=== PATIENT | female | born 1950 | race American Indian/Alaskan Native ===

== ENCOUNTER 2018-06-21 18:57 | Emergency (ER) | payer MEDICARE ==
--- NOTE | 2018-06-21 20:27 | Emergency Department Report ---
ED Psych HPI - General Chief Complaint: High BP Stated Complaint: EVALUATION Time Seen by Provider: 06/21/18 19:46 Source: patient, EMS Mode of arrival: Stretcher - History of Present Illness Initial Comments: Mrs. Pritchard is a very pleasant female with history of schizophrenia, CVA, hypertension, diabetes presents with "bizarre behavior". She was brought in by EMS. She has been out of her psychiatric medications including BuSpar olanzapine for the past 3 days. Her PCP is Dr. Pati Vargas. She is followed by psychiatrist at [facility]. She currently lives with her daughter. She denies any suicidal or homicidal ideation. She denies hallucinations. She states that she's had a contentious interactions with her sister and daughter. She lives with her daughter. The arguments involve money. [facility] She is relatively insightful. She is concerned that she's been without warfarin. Due to her CVA diagnosed March 2016, previous physician had recommended warfarin therapy. She recently moved from [facility] , May 2016 to be with her daughter as ordered by the court according to her history. 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 She receives monthly Social Security benefits of $ 736. She pays her daugther $400 in rent. No physical complaints except for poor appetite. She is currently hungry. [facility] Psychiatrist Dr. Brian Rocha In September 2016, medications listed Buspar 100 mg 1 tab each morning Ambien 10 mg QHS Fluphenazine 10 mg BID Complaint: altered mental status ("bizarre behavior") -: unknown Associated Psychiatric Symptoms: none Context: not taking psychiatric (ran out of medications 3 days ago) Associated Symptoms: denies other symptoms - Related Data Home Medications Medication Instructions Recorded Confirmed Last Taken Atenolol [Tenormin] 25 mg PO DAILY 06/21/18 06/21/18 Unknown Nitroglycerin [Nitrostat] 0.4 mg SL Q5M 06/21/18 06/21/18 Unknown Allergies Allergy/AdvReac Type Severity Reaction Status Date / Time No Known Allergies Allergy Verified 06/21/18 19:40 ED Review of Systems ROS: Stated complaint: EVALUATION Other details as noted in HPI Comment: All other systems reviewed and negative Constitutional: denies: fever, malaise Respiratory: denies: cough Cardiovascular: denies: chest pain ED Past Medical Hx - Past Medical History Previous Medical History?: Yes Hx Hypertension: Yes Hx Psychiatric Treatment: Yes (Depression, Schizophrenia, PTSD) - Surgical History Past Surgical History?: Yes Additional Surgical History: Partial hysterectomy. bladder sling - Social History Smoking Status: Never Smoker Substance Use Type: None - Medications Home Medications: Home Medications Medication Instructions Recorded Confirmed Last Taken Type Atenolol [Tenormin] 25 mg PO DAILY 06/21/18 06/21/18 Unknown History Nitroglycerin [Nitrostat] 0.4 mg SL Q5M 06/21/18 06/21/18 Unknown History ED Physical Exam - General Limitations: No Limitations General appearance: alert, in no apparent distress - Head Head exam: Present: atraumatic, normocephalic - Eye Eye exam: Present: normal appearance - ENT ENT exam: Present: mucous membranes moist - Neck Neck exam: Present: normal inspection - Respiratory Respiratory exam: Present: normal lung sounds bilaterally. Absent: respiratory distress, wheezes, rales, rhonchi - Cardiovascular Cardiovascular Exam: Present: regular rate, normal rhythm, tachycardia, normal heart sounds. Absent: bradycardia, systolic murmur, diastolic murmur, rubs, gallop - GI/Abdominal GI/Abdominal exam: Present: soft, normal bowel sounds. Absent: distended, tenderness, guarding, rebound - Extremities Exam Extremities exam: Present: normal inspection - Back Exam Back exam: Present: normal inspection - Neurological Exam Neurological exam: Present: alert, oriented X3 - Psychiatric Psychiatric exam: Present: normal affect, normal mood, other (pressured circular speech) - Skin Skin exam: Present: warm, dry, intact, normal color. Absent: rash ED Course Vital Signs 06/21/18 06/21/18 06/21/18 19:32 19:40 19:54 Temperature 99.1 F Pulse Rate 119 H 121 H Respiratory 12 14 14 Rate Blood Pressure 179/98 O2 Sat by Pulse 98 98 98 Oximetry 06/21/18 06/21/18 06/21/18 20:00 21:01 22:10 Temperature Pulse Rate 118 H 121 H 104 H Respiratory 12 10 L Rate Blood Pressure 204/125 204/125 157/100 O2 Sat by Pulse 96 98 Oximetry 06/21/18 06/21/1806/21/18 22:30 22:45 23:01 Temperature Pulse Rate 108 H 107 H 116 H Respiratory 11 L 13 22 Rate Blood Pressure 181/109 181/109 181/109 O2 Sat by Pulse 99 99 99 Oximetry 06/21/18 06/21/18 06/22/18 23:15 23:55 00:00 Temperature Pulse Rate 106 H 106 H 102 H Respiratory 12 21 11 L Rate Blood Pressure 181/109 164/97 139/88 O2 Sat by Pulse 99 98 93 Oximetry ED Medical Decision Making - Lab Data Result diagrams: 06/21/18 21:12 06/21/18 21:12 Laboratory Results - last 24 hr 06/21/18 06/21/18 06/21/18 21:12 21:12 21:12 WBC 8.5 RBC 4.54 Hgb 14.8 H Hct 43.0 H MCV 95 MCH 33 H MCHC 35 H RDW 14.6 Plt Count 169 Lymph % (Auto) 17.9 Butler % (Auto) 6.6 Eos % (Auto) 0.4 Baso % (Auto) 0.8 Lymph # 1.5 Butler # 0.6 Eos # 0.0 Baso # 0.1 Seg Neutrophils % 74.3 H Seg Neutrophils # 6.3 Sodium 145 Potassium 3.9 Chloride 106.4 Carbon Dioxide 25 Anion Gap 18 BUN 21 H Creatinine 1.7 H Estimated GFR 36 BUN/Creatinine Ratio 12 Glucose 104 H Calcium 10.0 Total Bilirubin 0.40 AST 20 ALT 6 L Alkaline Phosphatase 123 Total Protein 7.4 Albumin 4.0 Albumin/Globulin Ratio 1.2 TSH 1.750 Urine Color Urine Turbidity Urine pH Ur Specific [place] Urine Protein Urine Glucose (UA) Urine Ketones Urine Blood Urine Nitrite Urine Bilirubin Urine Urobilinogen Ur Leukocyte Esterase Urine WBC (Auto) Urine RBC (Auto) U Epithel Cells (Auto) Urine Bacteria (Auto) Hyaline Casts Urine Mucus Salicylates Urine Opiates Screen Urine Methadone Screen Acetaminophen Ur Barbiturates Screen Ur Phencyclidine Scrn Ur Amphetamines Screen U Benzodiazepines Scrn Urine Cocaine Screen U Marijuana (THC) Screen Drugs of Abuse Note Plasma/Serum Alcohol 06/21/18 06/21/18 06/21/18 21:12 21:12 21:12 WBC RBC Hgb Hct MCV MCH MCHC RDW Plt Count Lymph % (Auto) Butler % (Auto) Eos % (Auto) Baso % (Auto) Lymph # Butler # Eos # Baso # Seg Neutrophils % Seg Neutrophils # Sodium Potassium Chloride Carbon Dioxide Anion Gap BUN Creatinine Estimated GFR BUN/Creatinine Ratio Glucose Calcium Total Bilirubin AST ALT Alkaline Phosphatase Total Protein Albumin Albumin/Globulin Ratio TSH Urine Color Urine Turbidity Urine pH Ur Specific [place] Urine Protein Urine Glucose (UA) Urine Ketones Urine Blood Urine Nitrite Urine Bilirubin Urine Urobilinogen Ur Leukocyte Esterase Urine WBC (Auto) Urine RBC (Auto) U Epithel Cells (Auto) Urine Bacteria (Auto) Hyaline Casts Urine Mucus Salicylates < 0.3 L Urine Opiates Screen Urine Methadone Screen Acetaminophen < 5.0 L Ur Barbiturates Screen Ur Phencyclidine Scrn Ur Amphetamines Screen U Benzodiazepines Scrn Urine Cocaine Screen U Marijuana (THC) Screen Drugs of Abuse Note Plasma/Serum Alcohol < 0.01 06/22/18 06/22/18 00:00 00:00 WBC RBC Hgb Hct MCV MCH MCHC RDW Plt Count Lymph % (Auto) Butler % (Auto) Eos % (Auto) Baso % (Auto) Lymph # Butler # Eos # Baso # Seg Neutrophils % Seg Neutrophils # Sodium Potassium Chloride Carbon Dioxide Anion Gap BUN Creatinine Estimated GFR BUN/Creatinine Ratio Glucose Calcium Total Bilirubin AST ALT Alkaline Phosphatase Total Protein Albumin Albumin/Globulin Ratio TSH Urine Color Yellow Urine Turbidity Cloudy Urine pH 5.0 Ur Specific [place] 1.021 Urine Protein 100 mg/dl Urine Glucose (UA) Neg Urine Ketones Neg Urine Blood Neg Urine Nitrite Neg Urine Bilirubin Neg Urine Urobilinogen 2.0 Ur Leukocyte Esterase Neg Urine WBC (Auto) 5.0 Urine RBC (Auto) 2.0 U Epithel Cells (Auto) 16.0 H Urine Bacteria (Auto) 3+ Hyaline Casts 2 Urine Mucus 3+ Salicylates Urine Opiates Screen Presumptive negative Urine Methadone Screen Presumptive negative Acetaminophen Ur Barbiturates Screen Presumptive negative Ur Phencyclidine Scrn Presumptive negative Ur Amphetamines Screen Presumptive negative U Benzodiazepines Scrn Presumptive negative Urine Cocaine Screen Presumptive negative U Marijuana (THC) Screen Presumptive negative Drugs of Abuse Note Disclamer Plasma/Serum Alcohol - Radiology Data CT head, portable chest x-ray no acute process. - Medical Decision Making Mrs. Pritchard has hx of CVA, HTN, DM and schizophrenia. Due to pressured circular speech is is apparent that patient has mental illness. However she does not appear to be a harm to herself or others. Due to contentious relationship with daughter, I can understand that her home environment is not ideal. However appears that the daughter is taking care of her. I do not have a number to call to daughter. I will await recommendation from mental health and social work consultations. I anticipate the patient will be in the ER overnight as she awaits appropriate placement return to home or to a usp facility. Patient does not have signs of infection or CVA. No acute medical process which needs further treatment or evaluation. Patient is medically clear for psychiatric care. Awaiting mental health consultation as well as case management. Patient will need social worker aide as well as medications for her mental health needs. Critical care attestation.: If time is entered above; I have spent that time in minutes in the direct care of this critically ill patient, excluding procedure time. ED Disposition Clinical Impression: Problem situation relating to social and personal history, Schizophrenia, Noncompliance with medication regimen Disposition: [id number]/TX-70 ANOTHER TYPE HLTHCARE Is pt being admited?: No Does the pt Need Aspirin: No Condition: Stable
[2018-06-21] MEDS ORDERED: NACL 0.9% 1000 ML 1,000 ML IV ONE (20:30)
[2018-06-21] MEDS ORDERED: NORMODYNE PO ONE (21:02)
[2018-06-21 21:24] LABS: Basophils # (Auto) 0.1 K/mm3 (0.0-0.1); Basophils % (Auto) 0.8 % (0.0-1.8); Eosinophils % (Auto) 0.4 % (0.0-4.3); Hemoglobin 14.8 gm/dl (10.1-14.3); Lymphocytes # (Auto) 1.5 K/mm3 (1.2-5.4); Lymphocytes % (Auto) 17.9 % (13.4-35.0); Mean Corpuscular HGB Conc 35 % (30-34); Mean Corpuscular Hemoglobin 33 pg (28-32); Mean Corpuscular Volume 95 fl (79-97); Monocytes # (Auto) 0.6 K/mm3 (0.0-0.8); Monocytes % (Auto) 6.6 % (0.0-7.3); Platelet Count 169 K/mm3 (140-440); Red Blood Count 4.54 M/mm3 (3.65-5.03); Red Cell Distribution Width 14.6 % (13.2-15.2)
--- NOTE | 2018-06-21 21:46 | XRay Report ---
FINAL REPORT EXAM: XR CHEST 1V AP HISTORY: Medical Clearance Psych TECHNIQUE: AP portable view of the chest. PRIORS: None. FINDINGS: There is atherosclerotic calcification in the thoracic aorta. Otherwise the cardiomediastinal silhouette appears normal. The lungs are clear. The bones and soft tissues are unremarkable. IMPRESSION: No evidence of acute cardiopulmonary disease.
--- NOTE | 2018-06-21 22:16 | Cat Scan Report ---
FINAL REPORT EXAM: CT HEAD/BRAIN WO CON HISTORY: Medical Clearance Psych TECHNIQUE: CT was performed from the foramen magnum through the vertex in the axial plane without the use of intravenous contrast. PRIORS: None. FINDINGS: The medley/white matter attenuation pattern is normal. There is no mass lesion or mass effect. There are no abnormal extra-axial fluid collections. There is no evidence of acute intracranial hemorrhage or infarct. The ventricles are of normal size and configuration. The skull and orbits are unremarkable. The visualized paranasal sinuses are clear. IMPRESSION: Normal CT of the head.
[2018-06-22 00:43] LABS: Bacteria,Urine 3+ /HPF (Negative); Bilirubin,Urine NEG (Negative); Blood,Urine NEG (Negative); Color,Urine Yellow (Yellow); Hyaline Casts,Urine 2 /LPF; Mucus,Urine 3+ /HPF
[2018-06-22 00:46] LABS: Amphetamine Screen,Urine PRESUMPTIVE NEGATIVE; Benzodiazepines Screen,Urine PRESUMPTIVE NEGATIVE; Cannabinoid Screen,Urine PRESUMPTIVE NEGATIVE; Cocaine Screen,Urine PRESUMPTIVE NEGATIVE; Methadone Screen,Urine PRESUMPTIVE NEGATIVE; Opiate Screen,Urine PRESUMPTIVE NEGATIVE
[2018-06-22] MEDS: NORVASC PO SCH (10:07)
[2018-06-22] MEDS: ZESTRIL PO SCH (10:54)
[2018-06-23] MEDS ORDERED: ATIVAN ONE (11:05)
[2018-06-23] MEDS ORDERED: ZESTRIL ONE (11:42)
[2018-06-23] MEDS: ZESTRIL PO SCH (11:46)
[2018-06-23] MEDS: NORVASC PO SCH (11:47)
[2018-06-24] MEDS: NORVASC PO SCH (10:00)
[2018-06-24] MEDS: ZESTRIL PO SCH (10:00)
[2018-06-24] MEDS ORDERED: CATAPRES ONE (23:32)
[2018-06-24] MEDS ORDERED: CATAPRES PO ONE (23:35)
[2018-06-25] MEDS: ZESTRIL PO SCH (11:37)
[2018-06-25] MEDS: NORVASC PO SCH (11:37)
[2018-06-26] MEDS: ZESTRIL PO SCH ×2 (17:06→17:24)
[2018-06-26] MEDS: NORVASC PO SCH (17:23)
[2018-06-27] MEDS: NORVASC PO SCH (10:48)
[2018-06-27] MEDS: ZESTRIL PO SCH (10:48)
[2018-06-28] MEDS: ZESTRIL PO SCH (11:30)
[2018-06-28] MEDS: NORVASC PO SCH (11:30)
[2018-06-29] MEDS ORDERED: CARDIZEM ONE (09:21)
--- NOTE | 2018-06-29 11:17 | Emergency Department Report ---
Blank Doc - Documentation Documentation: Mrs. Pritchard has been in our ED for 7 days awaiting proper placement. She did not feel safe at home. I have reviewed all documentation. SHe is medically stable without acute psychiatric or medical needs. SW arranged placement at a personal halfway.
[2018-06-29 11:40] VITALS: BP 168/77
[2018-06-29] MEDS: ZESTRIL PO SCH (11:50)
[2018-06-29] MEDS: NORVASC PO SCH (11:50)
== END 2018-06-29 15:21 | disposition home or self-care (01) ==
LOC: EEVIPCON 18:57 → ED 18:57
DX: F20.9 Schizophrenia, unspecified (principal); I10 Essential (primary) hypertension; F32.9 Major depressive disorder, single episode, unspecified; F43.10 Post-traumatic stress disorder, unspecified; Z90.710 Acquired absence of both cervix and uterus
CPT/HCPCS: 36415; 70450; 71045; 80053; 80307; 81001; 84443; 85025; 96360; 99285; G0480; J2060; J7030; 80320

== ENCOUNTER 2018-11-15 09:08 | Inpatient (IN) | payer MEDICARE ==
--- NOTE | 2018-11-15 10:51 | Emergency Department Report ---
ED General Adult HPI - General Chief complaint: Extremity Injury, Lower Stated complaint: RT KNEE/ALTERED MENTAL STATUS Time Seen by Provider: 11/15/18 10:38 Source: patient, EMS (ems notes not available at time of chart dictation), RN notes reviewed, old records reviewed Mode of arrival: Stretcher Limitations: Physical Limitation, Other (patient disorganized) - History of Present Illness Initial comments: This is a 68-year-old female. The patient has a history of schizophrenia, stroke, hypertension, diabetes. The patient presents with disorganized and bizarre behavior. She has an initial complaint of right-sided knee pain after mechanical fall. She then begins talking about a Heisman trophy. The patient endorses no homicidality or suicidality. She denies headache, neck pain, chest pain, abdominal pain, shortness of breath, hallucinations, urinary symptoms. The patient is unable to tell me exactly where she lives. The patient is a very poor historian, and difficult to redirect. No family or friends currently available for collateral information at this time. -: unknown Location: right, lower extremity Quality: aching Consistency: intermittent Improves with: rest Worsens with: movement - Related Data Home Medications Medication Instructions Recorded Confirmed Last Taken Atenolol [Tenormin] 25 mg PO DAILY 06/21/18 06/21/18 Unknown Nitroglycerin [Nitrostat] 0.4 mg SL Q5M 06/21/18 06/21/18 Unknown NIFEdipine [Adalat cc] 90 mg PO DAILY 06/26/18 06/26/18 Unknown OLANZapine [Zyprexa] 5 mg PO QHS 06/26/18 06/26/18 Unknown buPROPion [Wellbutrin] 100 mg PO QAM 06/26/18 06/26/18 Unknown traZODone [Desyrel] 100 mg PO QHS 06/26/18 06/26/18 Unknown Allergies Allergy/AdvReac Type Severity Reaction Status Date / Time No Known Allergies Allergy Verified 06/21/18 19:40 ED Review of Systems ROS: Stated complaint: RT KNEE/ALTERED MENTAL STATUS Other details as noted in HPI Comment: Unobtainable due to pts medical conditions Constitutional: denies: fever Respiratory: denies: cough Cardiovascular: denies: chest pain Gastrointestinal: denies: abdominal pain Genitourinary: denies: dysuria Musculoskeletal: arthralgia, myalgia Psychiatric: denies: homicidal thoughts, suicidal thoughts ED Past Medical Hx - Past Medical History Previous Medical History?: Yes Hx Hypertension: Yes Hx Diabetes: Yes Hx Psychiatric Treatment: Yes (Depression, Schizophrenia, PTSD) - Surgical History Past Surgical History?: Yes Additional Surgical History: Partial hysterectomy. bladder sling - Social History Smoking Status: Never Smoker - Medications Home Medications: Home Medications Medication Instructions Recorded Confirmed Last Taken Type Atenolol [Tenormin] 25 mg PO DAILY 06/21/18 06/21/18 Unknown History Nitroglycerin [Nitrostat] 0.4 mg SL Q5M 06/21/18 06/21/18 Unknown History NIFEdipine [Adalat cc] 90 mg PO DAILY 06/26/18 06/26/18 Unknown History OLANZapine [Zyprexa] 5 mg PO QHS 06/26/18 06/26/18 Unknown History buPROPion [Wellbutrin] 100 mg PO QAM 06/26/18 06/26/18 Unknown History traZODone [Desyrel] 100 mg PO QHS 06/26/18 06/26/18 Unknown History ED Physical Exam - General Limitations: Other (patient appears to be disorganized) General appearance: alert, in no apparent distress, anxious, obese - Head Head exam: Present: atraumatic, normocephalic - Eye Eye exam: Present: normal appearance, PERRL, EOMI, other (visual acuity intact to finger counting, color perception, reading at a close distance). Absent: nystagmus - ENT ENT exam: Present: normal exam, normal orophraynx, mucous membranes moist, normal external ear exam - Neck Neck exam: Present: normal inspection, full ROM. Absent: tenderness, meningismus - Respiratory Respiratory exam: Present: normal lung sounds bilaterally. Absent: respiratory distress - Cardiovascular Cardiovascular Exam: Present: regular rate, normal rhythm, normal heart sounds. Absent: bradycardia, tachycardia, irregular rhythm, systolic murmur, diastolic murmur, rubs, gallop - GI/Abdominal GI/Abdominal exam: Present: soft. Absent: distended, tenderness, guarding, rebound, rigid, pulsatile mass - Extremities Exam Extremities exam: Present: full ROM, tenderness (anterior knee ecchymosis noted to the right knee. There is full range of motion of the bilateral knees and hips. There is point tenderness on the anterior right knee, and lateral joint line.), pedal edema, other (2+ pulses noted in the bilateral upper, lower extremities. Compartments soft. No long bony tenderness. The pelvis is stable.). Absent: calf tenderness - Back Exam Back exam: Present: normal inspection, full ROM. Absent: tenderness, CVA tenderness (R), paraspinal tenderness, vertebral tenderness - Neurological Exam Neurological exam: Present: alert, oriented X3, other (Extraocular movements intact. Tongue midline. No facial droop. Facial sensation intact to light touch in the V1, V2, V3 distribution bilaterally. 5 and 5 strength in 4 extremities.. Sensation is intact to light touch in 4 extremities.). Absent: motor sensory deficit - Psychiatric Psychiatric exam: Present: agitated, anxious. Absent: homicidal ideation, suicidal ideation - Skin Skin exam: Present: warm, dry, intact, normal color. Absent: rash ED Course Vital Signs 11/15/18 09:20 Temperature 97.5 F L Pulse Rate 100 H Respiratory 16 Rate Blood Pressure 180/102 O2 Sat by Pulse 96 Oximetry - Reevaluation(s) Reevaluation #1: 11/15/18 12:13 Differential diagnosis, including not limited to: Disorganized behavior, psychosis, intracranial injury, contusion, fracture, dislocation, sprain, strain Assessment and plan: 68-year-old female with disorganized behavior, no history of schizophrenia, and a complaint about right-sided knee pain. The patient is afebrile with reassuring vital signs. The patient is not homicidal or suicidal, but she is quite disorganized, and is a very poor historian. Case management consult was obtained, and we are not able to determine where the patient lives at this time. She denies homicidality and suicidality, however given her disorganized behavior, a psychiatric consultation was requested, and a recommendation for 1013 was made, for psychiatric stabilization. Given her disorganized behavior, nonsensical thought patterns, obvious inability to care for self, I am in agreement with this plan. Screening laboratory studies pending at this time, we will continue the patient's outpatient medications, I have requested that nursing team reconcile the patient's medications, and we will await results of laboratory studies. Reevaluation #2: 11/15/18 12:57 Laboratory studies demonstrated acute on chronic renal insufficiency. Hospital physician, Dr. Momo Yoon to admit requests renal consult Psychiatry team informed the patient would not be able to medically cleared from the emergency room. - Consultations Consultation #1: 11/15/18 14:42 d/w Dr Santo Tiwari, who will follow in consultation ED Medical Decision Making - Lab Data Result diagrams: 11/15/18 11:53 11/15/18 11:53 Vital Signs 11/15/18 09:20 Temperature 97.5 F L Pulse Rate 100 H Respiratory 16 Rate Blood Pressure 180/102 O2 Sat by Pulse 96 Oximetry - Radiology Data Radiology results: report reviewed, image reviewed Noncontrast CT scan of the brain is negative for acute disease. X-ray of the bilateral knees, pelvis, negative for acute disease. Critical care attestation.: If time is entered above; I have spent that time in minutes in the direct care of this critically ill patient, excluding procedure time. ED Disposition Clinical Impression: Acute on chronic renal insufficiency, Psychosis, Knee pain Disposition: OP ADMIT IP TO THIS HOSP Is pt being admited?: Yes Condition: Fair Referrals: [place] [facility] [Other] - 3-5 Days
--- NOTE | 2018-11-15 11:33 | XRay Report ---
AP PELVIS: HISTORY: Fall, leg pain. AP view of the pelvis shows normal pelvic contour and soft tissues. No evidence for fracture, bone lesion or diastasis. There is poor visualization of the right femoral neck secondary to internal rotation. IMPRESSION: No acute abnormality identified.
--- NOTE | 2018-11-15 11:34 | XRay Report ---
BILATERAL KNEES, 3 VIEWS History: Knee pain Findings: Moderate osteoarthritic changes are identified bilaterally. The right knee is slightly more affected. No evidence for fracture or, bone lesion or large joint effusion. Impression: Osteoarthritis. No acute process.
--- NOTE | 2018-11-15 11:36 | Cat Scan Report ---
CT HEAD WITHOUT CONTRAST: HISTORY: Fall, disorganized behavior. TECHNIQUE: Sequential 2.5mm CT images. COMPARISON: 06/21/18. FINDINGS: Cerebral Parenchyma: Within normal limits. Cerebellum: Within normal limits. Brainstem: Within normal limits. Ventricles: Normal. Sella: Normal. Extra-axial spaces: Normal. Basal Cisterns: Normal. Intracranial Hemorrhage: None. Midline Shift: None. Calvarium: Normal. Sinuses: Normal. Mastoid Air Cells: Normal. Visualized Orbits: Normal. IMPRESSION: Cranial CT scan within normal limits.
[2018-11-15] MEDS ORDERED: NON-FORMULARY (Nifedipine [Adalat Cc] 90 MG) PO SCH (12:15)
[2018-11-15 12:21] LABS: Hematocrit 32.8 % (30.3-42.9); Hemoglobin 11.2 gm/dl (10.1-14.3); Mean Corpuscular HGB Conc 34 % (30-34); Mean Corpuscular Volume 97 fl (79-97); Platelet Count 152 K/mm3 (140-440); Red Cell Distribution Width 15.9 % (13.2-15.2)
[2018-11-15] MEDS: TENORMIN PO SCH (12:29)
[2018-11-15 12:38] LABS: Calcium 9.2 mg/dL (8.4-10.2)
[2018-11-15] MEDS ORDERED: NACL 0.9% 1000 ML 1,000 ML IV ONE (12:50)
[2018-11-15 15:37] LABS: Bilirubin,Urine SM (Negative); Blood,Urine NEG (Negative); Color,Urine Amber (Yellow); Hyaline Casts,Urine 1 /LPF; Mucus,Urine FEW /HPF; RBC,Urine < 1.0 /HPF (0.0-6.0)
[2018-11-15 15:53] LABS: Amphetamine Screen,Urine PRESUMPTIVE NEGATIVE; Benzodiazepines Screen,Urine PRESUMPTIVE NEGATIVE; Cannabinoid Screen,Urine PRESUMPTIVE NEGATIVE; Cocaine Screen,Urine PRESUMPTIVE NEGATIVE; Creatinine,Urine 446.7 mg/dL (0.1-20.0); Methadone Screen,Urine PRESUMPTIVE NEGATIVE; Opiate Screen,Urine PRESUMPTIVE NEGATIVE
[2018-11-15 16:03] LABS: Ictotest,Urine Negative (Negative)
[2018-11-15] MEDS: PROCARDIA XL PO SCH (17:26)
--- NOTE | 2018-11-15 20:08 | Consultation ---
History of Present Illness - Reason for Consult Consult date: 11/15/18 acute renal failure Requesting physician: JASE MARTÍNEZ - History of Present Illness 68-year-old lady brought to the hospital because of bizarre behavior. Patient complained of right knee pain after fall. Patient states was sitting on my [place]" and on getting up, my right knee give way. She then began to speak nonsense. Later on she states she does have a history of chronic kidney disease and has been at stage III since 2014. 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 Past History Past Medical History: diabetes, hypertension, stroke, other (schizophrenia) Past Surgical History: No surgical history Social history: no significant social history, other (unable to obtain) Family history: other (unable to obtain) Medications and Allergies Allergies Allergy/AdvReac Type Severity Reaction Status Date / Time No Known Allergies Allergy Verified 06/21/18 19:40 Home Medications Medication Instructions Recorded Confirmed Last Taken Type Atenolol [Tenormin] 25 mg PO DAILY 06/21/18 06/21/18 Unknown History Nitroglycerin [Nitrostat] 0.4 mg SL Q5M 06/21/18 06/21/18 Unknown History NIFEdipine [Adalat cc] 90 mg PO DAILY 06/26/18 06/26/18 Unknown History OLANZapine [Zyprexa] 5 mg PO QHS 06/26/18 06/26/18 Unknown History buPROPion [Wellbutrin] 100 mg PO QAM 06/26/18 06/26/18 Unknown History traZODone [Desyrel] 100 mg PO QHS 06/26/18 06/26/18 Unknown History Active Meds: Active Medications Atenolol (Tenormin) 25 mg PO DAILY [facility] Last Admin: 11/15/18 12:29 Dose: 25 mg Documented by: Nifedipine (Procardia Xl) 90 mg PO QDAY [facility] Last Admin: 11/15/18 17:26 Dose: 90 mg Documented by: Review of Systems ROS unobtainable: due to mental status Exam - Vital Signs Vital signs: Vital Signs Temp Pulse Resp BP Pulse Ox 97.5 F L 100 H 16 180/102 96 11/15/18 09:20 11/15/18 09:20 11/15/18 09:20 11/15/18 09:20 11/15/18 09:20 - Physical Exam Narrative exam: Middle-aged morbidly obese, comfortably lying in bed in no acute distress HEENT: NCAT, pink oral mucous membrane Neck: Supple, no venous distention CVS: S1S2 RRR with no murmur, rub or gallop Chest: Clear to auscultation Abdomen: Obese, soft, nontender, no organomegaly, bowel sounds are present Extremities: No edema Skin: Warm and dry, no rash Genitourinary deferred Neuro: Awake, alert no focal deficits Results - Lab Results 11/15/18 11:53 11/15/18 11:53 Most recent lab results Calcium 9.2 mg/dL (8.4-10.2) 11/15/18 11:53 Magnesium 1.90 mg/dL (1.7-2.3) 11/15/18 11:53 Urine Creatinine 446.7 mg/dL (0.1-20.0) H 11/15/18 15:14 Urine Sodium 37 mmol/L 11/15/18 15:14 Assessment and Plan - Patient Problems (1) Acute on chronic renal insufficiency Current Visit: Yes Status: Acute Plan to address problem: ? Acute kidney injury ? Prerenal azotemia versus acute tubular necrosis. No episode of hypotension. No rhabdomyolysis. No NSAID use and no exposure to radiocontrast. Question volume depletion but blood pressure was high on presentation. Urinalysis shows proteinuria which may be related to chronic kidney disease. Gentle volume repletion and follow up electrolytes and renal function (2) Chronic kidney disease, stage III (moderate) Current Visit: Yes Status: Acute Plan to address problem: Request records of previous kidney function (3) Hypokalemia Current Visit: Yes Status: Acute Plan to address problem: Supplement potassium and follow-up levels (4) Hypertensive chronic kidney disease with stage 1 through stage 4 chronic kidney disease, or unspecified chronic kidney disease Current Visit: Yes Status: Acute Plan to address problem: Blood pressure improving. Follow-up blood pressure on current medications (5) Knee pain Current Visit: Yes Status: Acute Plan to address problem: Management by primary attending (6) Psychosis Current Visit: Yes Status: Acute Plan to address problem: Management per primary attending/psychiatrist
[2018-11-16] MEDS ORDERED: PERCOCET 5/325 PO PRN (04:30)
[2018-11-16] MEDS ORDERED: SODIUM CHLORIDE FLUSH SYRINGE 10 ML IV PRN (04:30)
[2018-11-16] MEDS ORDERED: DILAUDID IV PRN (04:30)
[2018-11-16] MEDS ORDERED: TYLENOL PO PRN (04:30)
--- NOTE | 2018-11-16 04:49 | Event Note ---
Date: 11/15/18 See H/p in reports [facility]ONNE Schizophrenia with disorganized behavior T2dm HTN
--- NOTE | 2018-11-16 05:09 | History and Physical Report ---
CHIEF COMPLAINT: Lower extremity injury. HISTORY OF PRESENT ILLNESS: A 68-year-old female with history of hypertension, cerebrovascular accident, diabetes and schizophrenia, presents with right-sided knee pain after a mechanical fall. After this episode, she talks about Miguel Angel Fordey. No suicidal or homicidal ideation. Workup in the Emergency Room revealed high BUN and creatinine because of which the patient is being admitted. No syncope. No chest pain. No fever or chills. No recent travel. PAST MEDICAL HISTORY: Significant for hypertension, diabetes, depression, schizophrenia. PAST SURGICAL HISTORY: Hysterectomy, partial hysterectomy and bladder sling. SOCIAL HISTORY: Does not smoke. Lives with daughter. FAMILY HISTORY: Hypertension. CURRENT MEDICATIONS: Atenolol 25 mg once a day, Zyprexa 5 mg at bedtime, bupropion 100 mg p.o. q.a.m., trazodone 100 mg p.o. at bedtime. REVIEW OF SYSTEMS: Significant for patient being disorganized, tangential in thought process. Otherwise, review of systems negative. PHYSICAL EXAMINATION: GENERAL: Elderly female, cooperative during examination. VITAL SIGNS: Initial blood pressure was 180/102. Later on, it improved to 133/61, temperature 97.5, pulse is 100, respirations are 16. HEENT: Unremarkable. Pupils are equal and reactive. NECK: Supple, no lymphadenopathy, no thyromegaly. LUNGS: Clear to auscultation and percussion. Good air entry. CARDIOVASCULAR: S1, S2 heard. No gallop, no murmur, no rub. Apical impulse in the left fifth intercostal space and midclavicular line. ABDOMEN: Soft and benign. No hepatosplenomegaly. No guarding, no rigidity. Hernial orifices are normal. EXTREMITIES: Good pedal pulses. No pedal edema. CENTRAL NERVOUS SYSTEM: Alert and oriented x 4, nonfocal exam. SKIN: Normal. LABORATORY DATA: Significant for white count of 8500, hemoglobin of 14.8, hematocrit of 43.0, platelet count of 169,000. White count from 11/15/2018 is 9000, H and H is 11.2 and 32.8, platelet count is 152,000. BUN and creatinine is 30 and 3.4. Potassium is 3.4. Total CK is 357. Urine negative. No infection. Drug screen is essentially negative. EKG, normal sinus rhythm. No acute ST-T wave changes. Chest x-ray shows no acute process. Head CT shows normal CT of the head. BUN and creatinine is 30 and 3.4. Baseline BUN and creatinine from 06/2018 is 21 and 1.7. ASSESSMENT AND PLAN: 1. Acute kidney injury, probably secondary to dehydration and vasomotor nephropathy. Nephrology consult requested. IV fluids for now. 2. Hypertension. Continue antihypertensives in the form of atenolol and nifedipine. 3. Diabetes. Continue coverage. No active antidiabetic medications on the chart. 4. Schizophrenia. Continue Zyprexa and trazodone. 5. Depression. Continue Wellbutrin. 6. Coronary artery disease. We will hold the nitroglycerin. 7. Deep venous thrombosis prophylaxis, Lovenox 40 mg subcutaneous daily. In summary, the patient has acute kidney injury, hypertension, schizophrenia and depression. Geripsych consult and mental health consult requested. JOB# [id number] BEBA/SERENA WILKINSON
--- NOTE | 2018-11-16 07:48 | Progress Note ---
Assessment and Plan Assessment and plan: 68F w pmh of schizoprhenia, dm, ckd who presents with acute psychosis Diagnosis Acute psychosis Schizophrenia adelaida on ckd DM? Hypoglycemia Plan MH consult to optimize psych meds, may need psych placement IVF, nephrology consult appreciated Check a1c continue dextrose, DVT ppx with lovenox History Interval history: Patient remains disorganized Review of systems Constitutional: No fevers, no malaise, no joint pains CVS: No chest pain, no orthopnea, no dyspnea on exertion, no pedal edema GI: No abdominal pain, no diarrhea, no vomiting, no constipation Respiratory: No shortness of breath, no wheezing, no coughing Hospitalist Physical - Physical exam Narrative exam: General.: Appears well, no distress, nontoxic HEENT: Moist mucous membranes, extraocular muscles intact, no lymphadenopathy Neck: supple Cardiac: S1-S2 heard Lungs: clear to auscultation bilaterally Abdomen: soft , nontender, nondistended, bowel sounds positive Extremities: no edema clubbing or cyanosis Skin: no rash or lesions Neurologic: no gross focal deficits Psych: Disorganized - Constitutional Vitals: Temp Pulse Resp BP Pulse Ox 98.2 F 86 18 128/69 97 11/15/18 19:39 11/15/18 19:39 11/15/18 19:39 11/15/18 19:39 11/15/18 19:39 Results - Labs CBC & Chem 7: 11/15/18 11:53 11/17/18 07:48 Labs: Laboratory Last Values WBC 9.0 K/mm3 (4.5-11.0) 11/15/18 11:53 RBC 3.40 M/mm3 (3.65-5.03) L 11/15/18 11:53 Hgb 11.2 gm/dl (10.1-14.3) 11/15/18 11:53 Hct 32.8 % (30.3-42.9) 11/15/18 11:53 MCV 97 fl (79-97) 11/15/18 11:53 MCH 33 pg (28-32) H 11/15/18 11:53 MCHC 34 % (30-34) 11/15/18 11:53 RDW 15.9 % (13.2-15.2) H 11/15/18 11:53 Plt Count 152 K/mm3 (140-440) 11/15/18 11:53 Sodium 143 mmol/L (137-145) 11/15/18 11:53 Potassium 3.4 mmol/L (3.6-5.0) L 11/15/18 11:53 Chloride 98.8 mmol/L (98-107) 11/15/18 11:53 Carbon Dioxide 29 mmol/L (22-30) 11/15/18 11:53 Anion Gap 19 mmol/L 11/15/18 11:53 BUN 30 mg/dL (7-17) H 11/15/18 11:53 Creatinine 3.4 mg/dL (0.7-1.2) H 11/15/18 11:53 Estimated GFR 16 ml/min 11/15/18 11:53 BUN/Creatinine Ratio 9 % 11/15/18 11:53 Glucose 93 mg/dL (65-100) 11/15/18 11:53 POC Glucose 66 (70-105) L 11/15/18 22:14 Calcium 9.2 mg/dL (8.4-10.2) 11/15/18 11:53 Magnesium 1.90 mg/dL (1.7-2.3) 11/15/18 11:53 Total Creatine Kinase 357 units/L (30-135) H 11/15/18 11:53 TSH 2.360 mlU/mL (0.270-4.200) 11/15/18 13:24 Urine Color Radha (Yellow) 11/15/18 15:14 Urine Turbidity Clear (Clear) 11/15/18 15:14 Urine pH 5.0 (5.0-7.0) 11/15/18 15:14 Ur Specific [place] 1.025 (1.003-1.030) 11/15/18 15:14 Urine Protein 30 mg/dl mg/dL (Negative) 11/15/18 15:14 Urine Glucose (UA) Neg mg/dL (Negative) 11/15/18 15:14 Urine Ketones Tr mg/dL (Negative) 11/15/18 15:14 Urine Blood Neg (Negative) 11/15/18 15:14 Urine Nitrite Neg (Negative) 11/15/18 15:14 Urine Bilirubin Sm (Negative) 11/15/18 15:14 Urine Ictotest Negative (Negative) 11/15/18 15:14 Urine Urobilinogen 2.0 mg/dL (<2.0) 11/15/18 15:14 Ur Leukocyte Esterase Neg (Negative) 11/15/18 15:14 Urine WBC (Auto) 2.0 /HPF (0.0-6.0) 11/15/18 15:14 Urine RBC (Auto) < 1.0 /HPF (0.0-6.0) 11/15/18 15:14 U Epithel Cells (Auto) < 1.0 /HPF (0-13.0) 11/15/18 15:14 Hyaline Casts 1 /LPF 11/15/18 15:14 Urine Mucus Few /HPF 11/15/18 15:14 Urine Yeast (Budding) Few /HPF 11/15/18 15:14 Urine Creatinine 446.7 mg/dL (0.1-20.0) H 11/15/18 15:14 Urine Sodium 37 mmol/L 11/15/18 15:14 Salicylates < 0.3 mg/dL (2.8-20.0) L 11/15/18 13:24 Urine Opiates Screen Presumptive negative 11/15/18 15:14 Urine Methadone Screen Presumptive negative 11/15/18 15:14 Acetaminophen < 5.0 ug/mL (10.0-30.0) L 11/15/18 11:53 Ur Barbiturates Screen Presumptive negative 11/15/18 15:14 Ur Phencyclidine Scrn Presumptive negative 11/15/18 15:14 Ur Amphetamines Screen Presumptive negative 11/15/18 15:14 U Benzodiazepines Scrn Presumptive negative 11/15/18 15:14 Urine Cocaine Screen Presumptive negative 11/15/18 15:14 U Marijuana (THC) Screen Presumptive negative 11/15/18 15:14 Drugs of Abuse Note Disclamer 11/15/18 15:14 Plasma/Serum Alcohol < 0.01 % (0-0.07) 11/15/18 13:24
[2018-11-16] MEDS: HumaLOG SUB-Q SCH ×2 (09:13→15:00)
--- NOTE | 2018-11-16 09:16 | Consultation ---
History of Present Illness - Reason for Consult Consult date: 11/16/18 Schizophrenia Requesting physician: JASE MARTÍNEZ - History of Present Illness Patient is a 68yo female with history of Schizophrenia. She presented to [facility] via EMS. Psychiatry consult requested to help with management of Schizophrenia. Patient seen by me this morning. She is irritable, disorganized, grandiose and uncooperative with interview. She is verbally abusive, yells at her Sitter who is at her bedside. She states that she has no problems. She denies SI/HI/AVH. She appears to be confused and disorganized. Nursing staff reports that she is refusing cares, blood draw and vital signs. History was limited due to patient's uncooperative and agitated behavior. Past History Past Medical History: diabetes, hypertension, stroke, other (schizophrenia) Past Surgical History: No surgical history Social history: no significant social history, other (unable to obtain) Family history: other (unable to obtain) Medications and Allergies Allergies Allergy/AdvReac Type Severity Reaction Status Date / Time No Known Allergies Allergy Verified 06/21/18 19:40 Home Medications Medication Instructions Recorded Confirmed Last Taken Type Atenolol [Tenormin] 25 mg PO DAILY 06/21/18 06/21/18 Unknown History Nitroglycerin [Nitrostat] 0.4 mg SL Q5M 06/21/18 06/21/18 Unknown History NIFEdipine [Adalat cc] 90 mg PO DAILY 06/26/18 06/26/18 Unknown History OLANZapine [Zyprexa] 5 mg PO QHS 06/26/18 06/26/18 Unknown History buPROPion [Wellbutrin] 100 mg PO QAM 06/26/18 06/26/18 Unknown History traZODone [Desyrel] 100 mg PO QHS 06/26/18 06/26/18 Unknown History Active Meds: Active Medications Acetaminophen (Tylenol) 650 mg PO Q4H PRN PRN Reason: Pain MILD(1-3)/Fever >100.5/MARIE Atenolol (Tenormin) 25 mg PO DAILY [facility] Last Admin: 11/15/18 12:29 Dose: 25 mg Documented by: Bupropion HCl (Wellbutrin) 100 mg PO QAM [facility] Enoxaparin Sodium (Lovenox) 30 mg SUB-Q DAILY@2200 [facility] Famotidine (Pepcid) 10 mg PO BID [facility] Hydromorphone HCl (Dilaudid) 0.25 mg IV Q3H PRN PRN Reason: Pain, Moderate (4-6) Dextrose/Sodium Chloride (D5ns) 1,000 mls @ 75 mls/hr IV DIRECT [facility] Insulin Human Lispro (Humalog) 0 unit SUB-Q ACHS [facility]; Protocol Last Admin: 11/16/18 09:13 Dose: Not Given Documented by: Nifedipine (Procardia Xl) 90 mg PO QDAY [facility] Last Admin: 11/15/18 17:26 Dose: 90 mg Documented by: Olanzapine (Zyprexa) 5 mg PO QHS [facility] Oxycodone/Acetaminophen (Percocet 5/325) 1 tab PO Q6H PRN PRN Reason: Pain, Moderate (4-6) Sodium Chloride (Sodium Chloride Flush Syringe 10 Ml) 10 ml IV BID [facility] Sodium Chloride (Sodium Chloride Flush Syringe 10 Ml) 10 ml IV PRN PRN PRN Reason: LINE FLUSH Trazodone HCl (Desyrel) 100 mg PO QHS [facility] Review of Systems ROS unobtainable: due to mental status Exam - Constitutional Vitals: Temp Pulse Resp BP Pulse Ox 98.2 F 86 18 128/69 97 11/15/18 19:39 11/15/18 19:39 11/15/18 19:39 11/15/18 19:39 11/15/18 19:39 General appearance: Present: no acute distress - EENT Eyes: Present: PERRL ENT: hearing intact - Respiratory Respiratory effort: normal Results - Labs CBC & Chem 7: 11/15/18 11:53 11/15/18 11:53 Labs: Abnormal lab results 11/15/18 11/15/18 11/15/18 Range/Units 11:53 11:53 11:53 RBC 3.40 L (3.65-5.03) M/mm3 MCH 33 H (28-32) pg RDW 15.9 H (13.2-15.2) % Potassium 3.4 L (3.6-5.0) mmol/L BUN 30 H (7-17) mg/dL Creatinine 3.4 H (0.7-1.2) mg/dL POC Glucose (70-105) Total Creatine Kinase 357 H (30-135) units/L Urine Creatinine (0.1-20.0) mg/dL Salicylates (2.8-20.0) mg/dL Acetaminophen < 5.0 L (10.0-30.0) ug/mL 11/15/18 11/15/18 11/15/18 Range/Units 13:24 15:14 22:14 RBC (3.65-5.03) M/mm3 MCH (28-32) pg RDW (13.2-15.2) % Potassium (3.6-5.0) mmol/L BUN (7-17) mg/dL Creatinine (0.7-1.2) mg/dL POC Glucose 66 L (70-105) Total Creatine Kinase (30-135) units/L Urine Creatinine 446.7 H (0.1-20.0) mg/dL Salicylates < 0.3 L (2.8-20.0) mg/dL Acetaminophen (10.0-30.0) ug/mL Assessment and Plan IMPRESSION: Paranoid Schizophrenia. 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 Pl;ease transfer to Psych when medically cleared LEGAL STATUS: Continue involuntary status FOLLOW-UP: Will continue to follow I have reviewed this treatment plan, including potential risks and benefits of medications, with the patient and/or family members and relevant hospital providers. Please contact with any questions and/or concerns. - Patient Problems (1) Acute on chronic renal insufficiency Current Visit: Yes Status: Acute (2) Chronic kidney disease, stage III (moderate) Current Visit: Yes Status: Acute (3) Hypertensive chronic kidney disease with stage 1 through stage 4 chronic k idney disease, or unspecified chronic kidney disease Current Visit: Yes Status: Acute (4) Hypokalemia Current Visit: Yes Status: Acute (5) Knee pain Current Visit: Yes Status: Acute (6) Psychosis Current Visit: Yes Status: Acute (7) Type 2 diabetes mellitus with diabetic nephropathy Current Visit: Yes Status: Acute
--- NOTE | 2018-11-16 11:12 | Progress Note ---
Assessment and Plan - Patient Problems (1) Acute on chronic renal insufficiency Current Visit: Yes Status: Acute Plan to address problem: ? Acute kidney injury ? Prerenal azotemia versus acute tubular necrosis. No episode of hypotension. No rhabdomyolysis. No NSAID use and no exposure to radiocontrast. Question volume depletion but blood pressure was high on presentation. Urinalysis shows proteinuria which may be related to chronic kidney disease. Labs are pending this morning. Follow-up electrolytes are not functional. Continue gentle volume patient. Awaiting records from the [place] and [place] (2) Chronic kidney disease, stage III (moderate) Current Visit: Yes Status: Acute Plan to address problem: Request records of previous kidney function (3) Hypokalemia Current Visit: Yes Status: Acute Plan to address problem: Supplement potassium and follow-up levels (4) Hypertensive chronic kidney disease with stage 1 through stage 4 chronic kidney disease, or unspecified chronic kidney disease Current Visit: Yes Status: Acute Plan to address problem: Blood pressure improving. Follow-up blood pressure on current medications (5) Knee pain Current Visit: Yes Status: Acute Plan to address problem: Management by primary attending (6) Psychosis Current Visit: Yes Status: Acute Plan to address problem: Management per primary attending/psychiatrist Subjective Date of service: 11/16/18 Principal diagnosis: acute kidney injury Interval history: Patient seen lying in bed. Still with nonsensical speech Objective - Exam Narrative Exam: Middle-aged morbidly obese, comfortably lying in bed in no acute distress HEENT: NCAT, pink oral mucous membrane Neck: Supple, no venous distention CVS: S1S2 RRR with no murmur, rub or gallop Chest: Clear to auscultation Abdomen: Obese, soft, nontender, no organomegaly, bowel sounds are present Extremities: No edema Skin: Warm and dry, no rash Genitourinary deferred Neuro: Awake, alert no focal deficits - Vital Signs Vital signs: Vital Signs - 12hr 11/16/18 10:00 Pulse Rate 97 H - Lab 11/15/18 11:53 11/15/18 11:53 Most recent lab results Calcium 9.2 mg/dL (8.4-10.2) 11/15/18 11:53 Magnesium 1.90 mg/dL (1.7-2.3) 11/15/18 11:53 Urine Creatinine 446.7 mg/dL (0.1-20.0) H 11/15/18 15:14 Urine Sodium 37 mmol/L 11/15/18 15:14 Medications & Allergies - Medications Allergies/Adverse Reactions: Allergies No Known Allergies Allergy (Verified 06/21/18 19:40) Home Medications: Home Medications Medication Instructions Recorded Confirmed Last Taken Type Atenolol [Tenormin] 25 mg PO DAILY 06/21/18 06/21/18 Unknown History Nitroglycerin [Nitrostat] 0.4 mg SL Q5M 06/21/18 06/21/18 Unknown History NIFEdipine [Adalat cc] 90 mg PO DAILY 06/26/18 06/26/18 Unknown History OLANZapine [Zyprexa] 5 mg PO QHS 06/26/18 06/26/18 Unknown History buPROPion [Wellbutrin] 100 mg PO QAM 06/26/18 06/26/18 Unknown History traZODone [Desyrel] 100 mg PO QHS 06/26/18 06/26/18 Unknown History Active Medications: Generic Name Dose Route Start Last Admin Trade Name Freq PRN Reason Stop Dose Admin Acetaminophen 650 mg 11/16/18 04:30 Tylenol PO Q4H PRN Pain MILD(1-3)/Fever >100.5/MARIE Atenolol 25 mg 11/15/18 13:00 11/15/18 12:29 Tenormin PO 25 mg DAILY [facility] Administration Bupropion HCl 100 mg 11/16/18 10:00 Wellbutrin PO QAM [facility] Enoxaparin Sodium 30 mg 11/16/18 22:00 Lovenox SUB-Q DAILY@2200 [facility] Famotidine 10 mg 11/16/18 10:00 Pepcid PO BID [facility] Hydromorphone HCl 0.25 mg 11/16/18 04:30 Dilaudid IV Q3H PRN Pain, Moderate (4-6) Dextrose/Sodium Chloride 1,000 mls @ 75 mls/hr 11/16/18 05:00 D5ns IV DIRECT [facility] Insulin Human Lispro 0 unit 11/16/18 07:30 11/16/18 09:13 Humalog SUB-Q Not Given ACHS [facility] Protocol Nifedipine 90 mg 11/15/18 13:00 11/15/18 17:26 Procardia Xl PO 90 mg QDAY [facility] Administration Olanzapine 5 mg 11/16/18 22:00 Zyprexa PO QHS [facility] Oxycodone/Acetaminophen 1 tab 11/16/18 04:30 Percocet 5/325 PO Q6H PRN Pain, Moderate (4-6) Sodium Chloride 10 ml 11/16/18 10:00 Sodium Chloride Flush Syringe 10 Ml IV BID [facility] Sodium Chloride 10 ml 11/16/18 04:30 Sodium Chloride Flush Syringe 10 Ml IV PRN PRN LINE FLUSH Trazodone HCl 100 mg 11/16/18 22:00 Desyrel PO QHS [facility]
[2018-11-16] MEDS: PROCARDIA XL PO SCH (14:59)
[2018-11-16] MEDS: TENORMIN PO SCH (14:59)
[2018-11-16] MEDS: PEPCID PO SCH ×2 (14:59→22:18)
[2018-11-16] MEDS: SODIUM CHLORIDE FLUSH SYRINGE 10 ML IV SCH (14:59)
[2018-11-16] MEDS: WELLBUTRIN PO SCH (14:59)
[2018-11-16 21:50] LABS: Calcium 8.6 mg/dL (8.4-10.2)
[2018-11-16] MEDS ORDERED: LOVENOX SUB-Q SCH (22:00)
[2018-11-16] MEDS: DESYREL PO SCH (22:18)
[2018-11-16] MEDS: LOVENOX SUB-Q SCH (22:19)
--- NOTE | 2018-11-17 07:27 | Progress Note ---
Assessment and Plan Assessment and plan: 68F w pmh of schizoprhenia, dm, ckd who presents with acute psychosis Diagnosis Acute psychosis Schizophrenia adelaida on ckd Hypoglycemia Hypokalemia Plan consult to optimize psych meds, will be transferred to geriatric psych unit when Accu-Cheks medical problems have resolved Potassium repleted IVF, nephrology consult appreciated, renal function improved She is a life as adextrose, DM ruled out, A1c is 5 DVT ppx with lovenox History Interval history: Patient remains disorganized Review of systems Constitutional: No fevers, no malaise, no joint pains CVS: No chest pain, no orthopnea, no dyspnea on exertion, no pedal edema GI: No abdominal pain, no diarrhea, no vomiting, no constipation Respiratory: No shortness of breath, no wheezing, no coughing Hospitalist Physical - Physical exam Narrative exam: General.: Appears well, no distress, nontoxic HEENT: Moist mucous membranes, extraocular muscles intact, no lymphadenopathy Neck: supple Cardiac: S1-S2 heard Lungs: clear to auscultation bilaterally Abdomen: soft , nontender, nondistended, bowel sounds positive Extremities: no edema clubbing or cyanosis Skin: no rash or lesions Neurologic: no gross focal deficits Psych: Disorganized - Constitutional Vitals: Temp Pulse Resp BP Pulse Ox 98.1 F 87 20 128/61 97 11/16/18 19:28 11/16/18 19:28 11/16/18 19:28 11/16/18 19:28 11/16/18 19:28 General appearance: Present: no acute distress Results - Labs CBC & Chem 7: 11/15/18 11:53 11/17/18 07:48 Labs: Laboratory Last Values WBC 9.0 K/mm3 (4.5-11.0) 11/15/18 11:53 RBC 3.40 M/mm3 (3.65-5.03) L 11/15/18 11:53 Hgb 11.2 gm/dl (10.1-14.3) 11/15/18 11:53 Hct 32.8 % (30.3-42.9) 11/15/18 11:53 MCV 97 fl (79-97) 11/15/18 11:53 MCH 33 pg (28-32) H 11/15/18 11:53 MCHC 34 % (30-34) 11/15/18 11:53 RDW 15.9 % (13.2-15.2) H 11/15/18 11:53 Plt Count 152 K/mm3 (140-440) 11/15/18 11:53 Sodium 143 mmol/L (137-145) 11/16/18 21:07 Potassium 3.5 mmol/L (3.6-5.0) L 11/16/18 21:07 Chloride 104.4 mmol/L (98-107) 11/16/18 21:07 Carbon Dioxide 28 mmol/L (22-30) 11/16/18 21:07 Anion Gap 14 mmol/L 11/16/18 21:07 BUN 28 mg/dL (7-17) H 11/16/18 21:07 Creatinine 2.5 mg/dL (0.7-1.2) H 11/16/18 21:07 Estimated GFR 23 ml/min 11/16/18 21:07 BUN/Creatinine Ratio 11 % 11/16/18 21:07 Glucose 107 mg/dL (65-100) H 11/16/18 21:07 POC Glucose 99 (70-105) 11/16/18 22:11 Hemoglobin A1c 5.0 % (4-6) 11/15/18 11:43 Calcium 8.6 mg/dL (8.4-10.2) 11/16/18 21:07 Magnesium 1.90 mg/dL (1.7-2.3) 11/16/18 21:07 Total Creatine Kinase 357 units/L (30-135) H 11/15/18 11:53 TSH 2.360 mlU/mL (0.270-4.200) 11/15/18 13:24 Urine Color Radha (Yellow) 11/15/18 15:14 Urine Turbidity Clear (Clear) 11/15/18 15:14 Urine pH 5.0 (5.0-7.0) 11/15/18 15:14 Ur Specific [place] 1.025 (1.003-1.030) 11/15/18 15:14 Urine Protein 30 mg/dl mg/dL (Negative) 11/15/18 15:14 Urine Glucose (UA) Neg mg/dL (Negative) 11/15/18 15:14 Urine Ketones Tr mg/dL (Negative) 11/15/18 15:14 Urine Blood Neg (Negative) 11/15/18 15:14 Urine Nitrite Neg (Negative) 11/15/18 15:14 Urine Bilirubin Sm (Negative) 11/15/18 15:14 Urine Ictotest Negative (Negative) 11/15/18 15:14 Urine Urobilinogen 2.0 mg/dL (<2.0) 11/15/18 15:14 Ur Leukocyte Esterase Neg (Negative) 11/15/18 15:14 Urine WBC (Auto) 2.0 /HPF (0.0-6.0) 11/15/18 15:14 Urine RBC (Auto) < 1.0 /HPF (0.0-6.0) 11/15/18 15:14 U Epithel Cells (Auto) < 1.0 /HPF (0-13.0) 11/15/18 15:14 Hyaline Casts 1 /LPF 11/15/18 15:14 Urine Mucus Few /HPF 11/15/18 15:14 Urine Yeast (Budding) Few /HPF 11/15/18 15:14 Urine Creatinine 446.7 mg/dL (0.1-20.0) H 11/15/18 15:14 Urine Sodium 37 mmol/L 11/15/18 15:14 Salicylates < 0.3 mg/dL (2.8-20.0) L 11/15/18 13:24 Urine Opiates Screen Presumptive negative 11/15/18 15:14 Urine Methadone Screen Presumptive negative 11/15/18 15:14 Acetaminophen < 5.0 ug/mL (10.0-30.0) L 11/15/18 11:53 Ur Barbiturates Screen Presumptive negative 11/15/18 15:14 Ur Phencyclidine Scrn Presumptive negative 11/15/18 15:14 Ur Amphetamines Screen Presumptive negative 11/15/18 15:14 U Benzodiazepines Scrn Presumptive negative 11/15/18 15:14 Urine Cocaine Screen Presumptive negative 11/15/18 15:14 U Marijuana (THC) Screen Presumptive negative 11/15/18 15:14 Drugs of Abuse Note Disclamer 11/15/18 15:14 Plasma/Serum Alcohol < 0.01 % (0-0.07) 11/15/18 13:24
[2018-11-17] MEDS: HumaLOG SUB-Q SCH ×4 (08:20→22:17)
[2018-11-17 08:30] LABS: Calcium 8.5 mg/dL (8.4-10.2)
--- NOTE | 2018-11-17 09:01 | Progress Note ---
Assessment and Plan - Patient Problems (1) Acute on chronic renal insufficiency Current Visit: Yes Status: Acute Plan to address problem: ? Acute kidney injury ? Prerenal azotemia versus acute tubular necrosis. No episode of hypotension. No rhabdomyolysis. No NSAID use and no exposure to radiocontrast. Kidney function is bit better. Follow-up electrolytes and renal function. Continue gentle volume repletion. Awaiting records from the [place] and [place] to ascertain patient's baseline kidney function (2) Chronic kidney disease, stage III (moderate) Current Visit: Yes Status: Acute Plan to address problem: Request records of previous kidney function (3) Hypokalemia Current Visit: Yes Status: Acute Plan to address problem: Supplement potassium and follow-up levels (4) Hypertensive chronic kidney disease with stage 1 through stage 4 chronic kidney disease, or unspecified chronic kidney disease Current Visit: Yes Status: Acute Plan to address problem: Blood pressure improving. Follow-up blood pressure on current medications (5) Knee pain Current Visit: Yes Status: Acute Plan to address problem: Management by primary attending (6) Psychosis Current Visit: Yes Status: Acute Plan to address problem: Management per primary attending/psychiatrist Subjective Date of service: 11/17/18 Principal diagnosis: acute kidney injury Interval history: Patient seen lying in bed. Still with nonsensical speech. She keeps talking about [employer], [place] and [place] Objective - Exam Narrative Exam: Middle-aged morbidly obese, comfortably lying in bed in no acute distress HEENT: NCAT, pink oral mucous membrane Neck: Supple, no venous distention CVS: S1S2 RRR with no murmur, rub or gallop Chest: Clear to auscultation Abdomen: Obese, soft, nontender, no organomegaly, bowel sounds are present Extremities: No edema Skin: Warm and dry, no rash Genitourinary deferred Neuro: Awake, alert no focal deficits - Vital Signs Vital signs: Vital Signs - 12hr 11/17/18 08:01 Temperature 98.2 F Pulse Rate 94 H Respiratory 20 Rate Blood Pressure 106/53 O2 Sat by Pulse 97 Oximetry - Lab 11/15/18 11:53 11/17/18 07:48 Most recent lab results Calcium 8.5 mg/dL (8.4-10.2) 11/17/18 07:48 Magnesium 1.90 mg/dL (1.7-2.3) 11/16/18 21:07 Urine Creatinine 446.7 mg/dL (0.1-20.0) H 11/15/18 15:14 Urine Sodium 37 mmol/L 11/15/18 15:14 Medications & Allergies - Medications Allergies/Adverse Reactions: Allergies No Known Allergies Allergy (Verified 06/21/18 19:40) Home Medications: Home Medications Medication Instructions Recorded Confirmed Last Taken Type Atenolol [Tenormin] 25 mg PO DAILY 06/21/18 06/21/18 Unknown History Nitroglycerin [Nitrostat] 0.4 mg SL Q5M 06/21/18 06/21/18 Unknown History NIFEdipine [Adalat cc] 90 mg PO DAILY 06/26/18 06/26/18 Unknown History OLANZapine [Zyprexa] 5 mg PO QHS 06/26/18 06/26/18 Unknown History buPROPion [Wellbutrin] 100 mg PO QAM 06/26/18 06/26/18 Unknown History traZODone [Desyrel] 100 mg PO QHS 06/26/18 06/26/18 Unknown History Active Medications: Generic Name Dose Route Start Last Admin Trade Name Freq PRN Reason Stop Dose Admin Acetaminophen 650 mg 11/16/18 04:30 Tylenol PO Q4H PRN Pain MILD(1-3)/Fever >100.5/MARIE Atenolol 25 mg 11/15/18 13:00 11/16/18 14:59 Tenormin PO Not Given DAILY [facility] Bupropion HCl 100 mg 11/16/18 10:00 11/16/18 14:59 [facility]rin [facility] [place] Sodium 30 mg 11/16/18 22:00 11/16/18 22:19 Lovenox SUB-Q 30 mg DAILY@2200 [facility] Administration Famotidine 10 mg 11/16/18 10:00 11/16/18 22:18 Pepcid PO 10 mg BID [facility] Administration Hydromorphone HCl 0.25 mg 11/16/18 04:30 Dilaudid IV Q3H PRN Pain, Moderate (4-6) Dextrose/Sodium Chloride 1,000 mls @ 75 mls/hr 11/16/18 05:00 D5ns IV DIRECT [facility] Insulin Human Lispro 0 unit 11/16/18 07:30 11/17/18 08:20 Humalog SUB-Q Not Given ACHS [facility] Protocol Nifedipine 90 mg 11/15/18 13:00 11/16/18 14:59 Procardia Xl PO Not Given QDAY [facility] Olanzapine 5 mg 11/16/18 22:00 11/16/18 22:19 Zyprexa PO 5 mg QHS [facility] Administration Oxycodone/Acetaminophen 1 tab 11/16/18 04:30 Percocet 5/325 PO Q6H PRN Pain, Moderate (4-6) Sodium Chloride 10 ml 11/16/18 10:00 11/16/18 14:59 Sodium Chloride Flush Syringe 10 Ml IV Not Given BID [facility] Sodium Chloride 10 ml 11/16/18 04:30 Sodium Chloride Flush Syringe 10 Ml IV PRN PRN LINE FLUSH Trazodone HCl 100 mg 11/16/18 22:00 11/16/18 22:18 Desyrel PO 100 mg QHS [facility] Administration
[2018-11-17] MEDS ORDERED: K-DUR PO NR (09:02)
[2018-11-17] MEDS: PEPCID PO SCH ×2 (09:24→21:36)
[2018-11-17] MEDS: WELLBUTRIN PO SCH ×2 (09:26→13:57)
[2018-11-17] MEDS: TENORMIN PO SCH (10:00)
[2018-11-17] MEDS ORDERED: HALDOL IM PRN (13:29)
[2018-11-17] MEDS: PROCARDIA XL PO SCH (13:55)
[2018-11-17] MEDS: D5NS 1,000 ML IV SCH (15:17)
[2018-11-17] MEDS: SODIUM CHLORIDE FLUSH SYRINGE 10 ML IV SCH ×2 (15:18→21:23)
--- NOTE | 2018-11-17 20:57 | Ultrasound Report ---
PROCEDURE: US RENAL BILAT TECHNIQUE: Real-time sonography was performed of the kidneys with image documentation. HISTORY: Acute kidney injury COMPARISONS: None . FINDINGS: Examination of the kidneys demonstrates both to be normal in size and have normal cortical echogenici ty and thickness. The right and left kidneys measure 11.4 cm and 10.3 cm in craniocaudal length, resp ectively. No evidence for calculi, hydronephrosis, or solid mass is seen in either kidney. There are bilateral renal cysts which appear anechoic bilaterally with good through transmission and sharp outer cabrera. On the right, there are 2 adjacent cysts in the upper pole measuring 2.0 cm and 1. 7 x 1.2 x 1.8 cm. On the left, there are 2 exophytic cysts in the upper pole measuring 1.3 x 0.8 x 1. 0 cm and 9 x 11 x 8 mm. The urinary bladder shows no intraluminal abnormality or wall thickening. There is a small amount of mobile echogenic debris within the dependent portion of the bladder posteriorly. IMPRESSION: 1. Numerous bilateral renal cysts which appear anechoic and are likely benign 2. Minimal debris layering in the dependent portion of the bladder. This document is electronically signed by Nahomy Briggs MD., November 17 2018 08:55:57 PM ET
[2018-11-17] MEDS: LOVENOX SUB-Q SCH (21:19)
[2018-11-17] MEDS: HALDOL PO SCH (21:53)
[2018-11-17] MEDS: DESYREL PO SCH (21:53)
[2018-11-18] MEDS: D5NS 1,000 ML IV SCH (03:59)
[2018-11-18 06:20] LABS: Calcium 8.6 mg/dL (8.4-10.2)
--- NOTE | 2018-11-18 09:34 | Progress Note ---
Assessment and Plan - Patient Problems (1) Acute on chronic renal insufficiency Current Visit: Yes Status: Acute Plan to address problem: ? Acute kidney injury ? Prerenal azotemia versus acute tubular necrosis. No episode of hypotension. No rhabdomyolysis. No NSAID use and no exposure to radiocontrast. Kidney function is improving. Follow-up electrolytes and renal function. Continue gentle volume repletion. (2) Chronic kidney disease, stage III (moderate) Current Visit: Yes Status: Acute Plan to address problem: Request records of previous kidney function (3) Hypokalemia Current Visit: Yes Status: Acute Plan to address problem: Supplement potassium and follow-up levels (4) Hypertensive chronic kidney disease with stage 1 through stage 4 chronic kidney disease, or unspecified chronic kidney disease Current Visit: Yes Status: Acute Plan to address problem: Blood pressure improving. Follow-up blood pressure on current medications (5) Knee pain Current Visit: Yes Status: Acute Plan to address problem: Management by primary attending (6) Psychosis Current Visit: Yes Status: Acute Plan to address problem: Management per primary attending/psychiatrist Subjective Date of service: 11/18/18 Principal diagnosis: acute kidney injury Interval history: Patient seen lying in bed. Still with nonsensical speech. Objective - Exam Narrative Exam: Middle-aged morbidly obese, comfortably lying in bed in no acute distress HEENT: NCAT, pink oral mucous membrane Neck: Supple, no venous distention CVS: S1S2 RRR with no murmur, rub or gallop Chest: Clear to auscultation Abdomen: Obese, soft, nontender, no organomegaly, bowel sounds are present Extremities: No edema Skin: Warm and dry, no rash Genitourinary deferred Neuro: Awake, alert no focal deficits - Vital Signs Vital signs: Vital Signs - 12hr 11/18/18 11/18/18 11/18/18 02:09 07:23 08:02 Temperature 98.0 F 97.5 F L Pulse Rate 90 84 Pulse Rate [ 84 From Monitor] Respiratory 18 20 Rate Blood Pressure 109/73 143/80 O2 Sat by Pulse 99 98 Oximetry - Lab 11/15/18 11:53 11/18/18 04:12 Most recent lab results Calcium 8.6 mg/dL (8.4-10.2) 11/18/18 04:12 Phosphorus 2.80 mg/dL (2.5-4.5) 11/18/18 04:12 Magnesium 1.90 mg/dL (1.7-2.3) 11/16/18 21:07 Urine Creatinine 446.7 mg/dL (0.1-20.0) H 11/15/18 15:14 Urine Sodium 37 mmol/L 11/15/18 15:14 Medications & Allergies - Medications Allergies/Adverse Reactions: Allergies No Known Allergies Allergy (Verified 06/21/18 19:40) Home Medications: Home Medications Medication Instructions Recorded Confirmed Last Taken Type Atenolol [Tenormin] 25 mg PO DAILY 06/21/18 06/21/18 Unknown History Nitroglycerin [Nitrostat] 0.4 mg SL Q5M 06/21/18 06/21/18 Unknown History NIFEdipine [Adalat cc] 90 mg PO DAILY 06/26/18 06/26/18 Unknown History OLANZapine [Zyprexa] 5 mg PO QHS 06/26/18 06/26/18 Unknown History buPROPion [Wellbutrin] 100 mg PO QAM 06/26/18 06/26/18 Unknown History traZODone [Desyrel] 100 mg PO QHS 06/26/18 06/26/18 Unknown History Active Medications: Generic Name Dose Route Start Last Admin Trade Name Freq PRN Reason Stop Dose Admin Acetaminophen 650 mg 11/16/18 04:30 Tylenol PO Q4H PRN Pain MILD(1-3)/Fever >100.5/MARIE Atenolol 25 mg 11/15/18 13:00 11/17/18 10:00 Tenormin PO Not Given DAILY [facility] Bupropion HCl 100 mg 11/16/18 10:00 11/17/18 13:57 Wellbutrin PO Not Given QAM [facility] Enoxaparin Sodium 30 mg 11/16/18 22:00 11/17/18 21:19 Lovenox SUB-Q 30 mg DAILY@2200 [facility] Administration Famotidine 10 mg 11/16/18 10:00 11/17/18 21:36 Pepcid PO 10 mg BID [facility] Administration Haloperidol 0.5 mg 11/17/18 22:00 11/17/18 21:53 Haldol PO Not Given BID [facility] Haloperidol Lactate 5 mg 11/17/18 13:29 Haldol IM Q6H PRN Agitation Hydromorphone HCl 0.25 mg 11/16/18 04:30 Dilaudid IV Q3H PRN Pain, Moderate (4-6) Dextrose/Sodium Chloride 1,000 mls @ 75 mls/hr 11/16/18 05:00 11/18/18 03:59 D5ns IV 75 mls/hr DIRECT [facility] Administration Insulin Human Lispro 0 unit 11/16/18 07:30 11/17/18 22:17 Humalog SUB-Q Not Given ACHS [facility] Protocol Nifedipine 90 mg 11/15/18 13:00 11/17/18 13:55 Procardia Xl PO Not Given QDAY [facility] Olanzapine 5 mg 11/16/18 22:00 11/17/18 21:53 Zyprexa PO Not Given QHS [facility] Oxycodone/Acetaminophen 1 tab 11/16/18 04:30 Percocet 5/325 PO Q6H PRN Pain, Moderate (4-6) Sodium Chloride 10 ml 11/16/18 10:00 11/17/18 21:23 Sodium Chloride Flush Syringe 10 Ml IV 10 ml BID [facility] Administration Sodium Chloride 10 ml 11/16/18 04:30 Sodium Chloride Flush Syringe 10 Ml IV PRN PRN LINE FLUSH Trazodone HCl 100 mg 11/16/18 22:00 11/17/18 21:53 Desyrel PO Not Given QHS [facility]
[2018-11-18] MEDS: HumaLOG SUB-Q SCH ×2 (09:41→22:11)
[2018-11-18] MEDS: PROCARDIA XL PO SCH (10:00)
[2018-11-18] MEDS: PEPCID PO SCH ×2 (10:01→21:10)
[2018-11-18] MEDS: TENORMIN PO SCH (10:01)
[2018-11-18] MEDS: SODIUM CHLORIDE FLUSH SYRINGE 10 ML IV SCH ×2 (10:05→21:14)
[2018-11-18] MEDS: WELLBUTRIN PO SCH (10:06)
[2018-11-18] MEDS: HALDOL PO SCH ×2 (10:07→22:12)
--- NOTE | 2018-11-18 12:08 | Progress Note ---
Assessment and Plan Assessment and plan: 68F w pmh of schizophrenia, dm, ckd who presents with acute psychosis Diagnosis Acute psychosis Schizophrenia adelaida on ckd- vasomotor nephropathy Hypoglycemia Hypokalemia hypernatremia Plan consult to optimize psych meds, will be transferred to geriatric psych unit when Accu-Cheks medical problems have resolved Potassium repleted IVF, nephrology consult appreciated, renal function improved change fluid to D5w given hypernatremia DM ruled out, A1c is 5 DVT ppx with lovenox Tentative dc to geripsych tomorrow if Na is improved History Interval history: Patient remains disorganized Review of systems Constitutional: No fevers, no malaise, no joint pains CVS: No chest pain, no orthopnea, no dyspnea on exertion, no pedal edema GI: No abdominal pain, no diarrhea, no vomiting, no constipation Respiratory: No shortness of breath, no wheezing, no coughing Hospitalist Physical - Physical exam Narrative exam: General.: Appears well, no distress, nontoxic HEENT: Moist mucous membranes, extraocular muscles intact, no lymphadenopathy Neck: supple Cardiac: S1-S2 heard Lungs: clear to auscultation bilaterally Abdomen: soft , nontender, nondistended, bowel sounds positive Extremities: no edema clubbing or cyanosis Skin: no rash or lesions Neurologic: no gross focal deficits Psych: Disorganized, flights of fancy, delusions of grandeur - Constitutional Vitals: Temp Pulse Resp BP Pulse Ox 97.5 F L 84 20 143/80 98 11/18/18 07:23 11/18/18 08:02 11/18/18 07:23 11/18/18 10:01 11/18/18 07:23 General appearance: Present: no acute distress Results - Labs CBC & Chem 7: 11/15/18 11:53 11/18/18 04:12 Labs: Laboratory Last Values WBC 9.0 K/mm3 (4.5-11.0) 11/15/18 11:53 RBC 3.40 M/mm3 (3.65-5.03) L 11/15/18 11:53 Hgb 11.2 gm/dl (10.1-14.3) 11/15/18 11:53 Hct 32.8 % (30.3-42.9) 11/15/18 11:53 MCV 97 fl (79-97) 11/15/18 11:53 MCH 33 pg (28-32) H 11/15/18 11:53 MCHC 34 % (30-34) 11/15/18 11:53 RDW 15.9 % (13.2-15.2) H 11/15/18 11:53 Plt Count 152 K/mm3 (140-440) 11/15/18 11:53 Sodium 150 mmol/L (137-145) H 11/18/18 04:12 Potassium 3.9 mmol/L (3.6-5.0) 11/18/18 04:12 Chloride 113.1 mmol/L (98-107) H 11/18/18 04:12 Carbon Dioxide 22 mmol/L (22-30) 11/18/18 04:12 Anion Gap 19 mmol/L 11/18/18 04:12 BUN 21 mg/dL (7-17) H 11/18/18 04:12 Creatinine 1.9 mg/dL (0.7-1.2) H 11/18/18 04:12 Estimated GFR 32 ml/min 11/18/18 04:12 BUN/Creatinine Ratio 11 % 11/18/18 04:12 Glucose 94 mg/dL (65-100) 11/18/18 04:12 POC Glucose 112 (70-105) H 11/18/18 11:47 Hemoglobin A1c 5.0 % (4-6) 11/15/18 11:43 Calcium 8.6 mg/dL (8.4-10.2) 11/18/18 04:12 Phosphorus 2.80 mg/dL (2.5-4.5) 11/18/18 04:12 Magnesium 1.90 mg/dL (1.7-2.3) 11/16/18 21:07 Total Creatine Kinase 357 units/L (30-135) H 11/15/18 11:53 TSH 2.360 mlU/mL (0.270-4.200) 11/15/18 13:24 Urine Color Radha (Yellow) 11/15/18 15:14 Urine Turbidity Clear (Clear) 11/15/18 15:14 Urine pH 5.0 (5.0-7.0) 11/15/18 15:14 Ur Specific [place] 1.025 (1.003-1.030) 11/15/18 15:14 Urine Protein 30 mg/dl mg/dL (Negative) 11/15/18 15:14 Urine Glucose (UA) Neg mg/dL (Negative) 11/15/18 15:14 Urine Ketones Tr mg/dL (Negative) 11/15/18 15:14 Urine Blood Neg (Negative) 11/15/18 15:14 Urine Nitrite Neg (Negative) 11/15/18 15:14 Urine Bilirubin Sm (Negative) 11/15/18 15:14 Urine Ictotest Negative (Negative) 11/15/18 15:14 Urine Urobilinogen 2.0 mg/dL (<2.0) 11/15/18 15:14 Ur Leukocyte Esterase Neg (Negative) 11/15/18 15:14 Urine WBC (Auto) 2.0 /HPF (0.0-6.0) 11/15/18 15:14 Urine RBC (Auto) < 1.0 /HPF (0.0-6.0) 11/15/18 15:14 U Epithel Cells (Auto) < 1.0 /HPF (0-13.0) 11/15/18 15:14 Hyaline Casts 1 /LPF 11/15/18 15:14 Urine Mucus Few /HPF 11/15/18 15:14 Urine Yeast (Budding) Few /HPF 11/15/18 15:14 Urine Creatinine 446.7 mg/dL (0.1-20.0) H 11/15/18 15:14 Urine Sodium 37 mmol/L 11/15/18 15:14 Salicylates < 0.3 mg/dL (2.8-20.0) L 11/15/18 13:24 Urine Opiates Screen Presumptive negative 11/15/18 15:14 Urine Methadone Screen Presumptive negative 11/15/18 15:14 Acetaminophen < 5.0 ug/mL (10.0-30.0) L 11/15/18 11:53 Ur Barbiturates Screen Presumptive negative 11/15/18 15:14 Ur Phencyclidine Scrn Presumptive negative 11/15/18 15:14 Ur Amphetamines Screen Presumptive negative 11/15/18 15:14 U Benzodiazepines Scrn Presumptive negative 11/15/18 15:14 Urine Cocaine Screen Presumptive negative 11/15/18 15:14 U Marijuana (THC) Screen Presumptive negative 11/15/18 15:14 Drugs of Abuse Note Disclamer 11/15/18 15:14 Plasma/Serum Alcohol < 0.01 % (0-0.07) 11/15/18 13:24
[2018-11-18] MEDS: D5W 1,000 ML IV SCH (19:21)
[2018-11-18] MEDS: LOVENOX SUB-Q SCH (21:10)
[2018-11-18] MEDS: DESYREL PO SCH (22:12)
[2018-11-19] MEDS: D5W 1,000 ML IV SCH ×2 (04:40→14:14)
[2018-11-19] MEDS: HumaLOG SUB-Q SCH ×4 (09:14→22:31)
[2018-11-19 10:46] LABS: Calcium 9.1 mg/dL (8.4-10.2)
[2018-11-19] MEDS: PEPCID PO SCH ×2 (11:12→21:53)
[2018-11-19] MEDS: TENORMIN PO SCH (11:12)
[2018-11-19] MEDS: PROCARDIA XL PO SCH (11:12)
[2018-11-19] MEDS: WELLBUTRIN PO SCH (11:13)
[2018-11-19] MEDS: HALDOL PO SCH ×2 (11:13→22:33)
[2018-11-19] MEDS: SODIUM CHLORIDE FLUSH SYRINGE 10 ML IV SCH ×3 (11:13→22:43)
--- NOTE | 2018-11-19 14:23 | Progress Note ---
Assessment and Plan Assessment and plan: 68F w pmh of schizophrenia, dm, ckd who presents with acute psychosis Diagnosis Acute psychosis Schizophrenia adelaida on ckd- vasomotor nephropathy Hypoglycemia Hypokalemia hypernatremia Plan Potassium repleted hypotonic IVF, nephrology consult appreciated, renal function improved DM ruled out, A1c is 5 DVT ppx with lovenox she is medically optimized for discharge to [facility]. awaiting a bed Tentative dc to [facility] tomorrow if Na is improved History Interval history: Patient remains disorganized Review of systems Constitutional: No fevers, no malaise, no joint pains CVS: No chest pain, no orthopnea, no dyspnea on exertion, no pedal edema GI: No abdominal pain, no diarrhea, no vomiting, no constipation Respiratory: No shortness of breath, no wheezing, no coughing Hospitalist Physical - Physical exam Narrative exam: General.: Appears well, no distress, nontoxic HEENT: Moist mucous membranes, extraocular muscles intact, no lymphadenopathy Neck: supple Cardiac: S1-S2 heard Lungs: clear to auscultation bilaterally Abdomen: soft , nontender, nondistended, bowel sounds positive Extremities: no edema clubbing or cyanosis Skin: no rash or lesions Neurologic: no gross focal deficits Psych: Disorganized, flights of fancy, delusions of grandeur - Constitutional Vitals: Temp Pulse Resp BP Pulse Ox 98.4 F 78 20 141/78 100 11/19/18 07:49 11/19/18 07:49 11/19/18 07:49 11/19/18 07:49 11/19/18 07:49 General appearance: Present: no acute distress Results - Labs CBC & Chem 7: 11/15/18 11:53 11/19/18 10:04 Labs: Laboratory Last Values WBC 9.0 K/mm3 (4.5-11.0) 11/15/18 11:53 RBC 3.40 M/mm3 (3.65-5.03) L 11/15/18 11:53 Hgb 11.2 gm/dl (10.1-14.3) 11/15/18 11:53 Hct 32.8 % (30.3-42.9) 11/15/18 11:53 MCV 97 fl (79-97) 11/15/18 11:53 MCH 33 pg (28-32) H 11/15/18 11:53 MCHC 34 % (30-34) 11/15/18 11:53 RDW 15.9 % (13.2-15.2) H 11/15/18 11:53 Plt Count 152 K/mm3 (140-440) 11/15/18 11:53 Sodium 136 mmol/L (137-145) L D 11/19/18 10:04 Potassium 3.9 mmol/L (3.6-5.0) 11/19/18 10:04 Chloride 102.4 mmol/L (98-107) 11/19/18 10:04 Carbon Dioxide 23 mmol/L (22-30) 11/19/18 10:04 Anion Gap 15 mmol/L 11/19/18 10:04 BUN 15 mg/dL (7-17) 11/19/18 10:04 Creatinine 1.3 mg/dL (0.7-1.2) H 11/19/18 10:04 Estimated GFR 49 ml/min 11/19/18 10:04 BUN/Creatinine Ratio 12 % 11/19/18 10:04 Glucose 106 mg/dL (65-100) H 11/19/18 10:04 POC Glucose 124 (70-105) H 11/19/18 11:36 Hemoglobin A1c 5.0 % (4-6) 11/15/18 11:43 Calcium 9.1 mg/dL (8.4-10.2) 11/19/18 10:04 Phosphorus 2.80 mg/dL (2.5-4.5) 11/18/18 04:12 Magnesium 1.90 mg/dL (1.7-2.3) 11/16/18 21:07 Total Creatine Kinase 357 units/L (30-135) H 11/15/18 11:53 TSH 2.360 mlU/mL (0.270-4.200) 11/15/18 13:24 Urine Color Radha (Yellow) 11/15/18 15:14 Urine Turbidity Clear (Clear) 11/15/18 15:14 Urine pH 5.0 (5.0-7.0) 11/15/18 15:14 Ur Specific [place] 1.025 (1.003-1.030) 11/15/18 15:14 Urine Protein 30 mg/dl mg/dL (Negative) 11/15/18 15:14 Urine Glucose (UA) Neg mg/dL (Negative) 11/15/18 15:14 Urine Ketones Tr mg/dL (Negative) 11/15/18 15:14 Urine Blood Neg (Negative) 11/15/18 15:14 Urine Nitrite Neg (Negative) 11/15/18 15:14 Urine Bilirubin Sm (Negative) 11/15/18 15:14 Urine Ictotest Negative (Negative) 11/15/18 15:14 Urine Urobilinogen 2.0 mg/dL (<2.0) 11/15/18 15:14 Ur Leukocyte Esterase Neg (Negative) 11/15/18 15:14 Urine WBC (Auto) 2.0 /HPF (0.0-6.0) 11/15/18 15:14 Urine RBC (Auto) < 1.0 /HPF (0.0-6.0) 11/15/18 15:14 U Epithel Cells (Auto) < 1.0 /HPF (0-13.0) 11/15/18 15:14 Hyaline Casts 1 /LPF 11/15/18 15:14 Urine Mucus Few /HPF 11/15/18 15:14 Urine Yeast (Budding) Few /HPF 11/15/18 15:14 Urine Creatinine 446.7 mg/dL (0.1-20.0) H 11/15/18 15:14 Urine Sodium 37 mmol/L 11/15/18 15:14 Salicylates < 0.3 mg/dL (2.8-20.0) L 11/15/18 13:24 Urine Opiates Screen Presumptive negative 11/15/18 15:14 Urine Methadone Screen Presumptive negative 11/15/18 15:14 Acetaminophen < 5.0 ug/mL (10.0-30.0) L 11/15/18 11:53 Ur Barbiturates Screen Presumptive negative 11/15/18 15:14 Ur Phencyclidine Scrn Presumptive negative 11/15/18 15:14 Ur Amphetamines Screen Presumptive negative 11/15/18 15:14 U Benzodiazepines Scrn Presumptive negative 11/15/18 15:14 Urine Cocaine Screen Presumptive negative 11/15/18 15:14 U Marijuana (THC) Screen Presumptive negative 11/15/18 15:14 Drugs of Abuse Note Disclamer 11/15/18 15:14 Plasma/Serum Alcohol < 0.01 % (0-0.07) 11/15/18 13:24
--- NOTE | 2018-11-19 14:33 | Progress Note ---
Assessment and Plan - Patient Problems (1) Acute on chronic renal insufficiency Current Visit: Yes Status: Acute Plan to address problem: ? Acute kidney injury probably acute tubular necrosis. No episode of hypotension. No rhabdomyolysis. No NSAID use and no exposure to radiocontrast. Kidney function is improving. Follow-up electrolytes and renal function. Continue gentle volume repletion. (2) Chronic kidney disease, stage III (moderate) Current Visit: Yes Status: Acute Plan to address problem: Request records of previous kidney function (3) Hypokalemia Current Visit: Yes Status: Acute Plan to address problem: Supplement potassium and follow-up levels (4) Hypertensive chronic kidney disease with stage 1 through stage 4 chronic k idney disease, or unspecified chronic kidney disease Current Visit: Yes Status: Acute Plan to address problem: Blood pressure improving. Follow-up blood pressure on current medications (5) Knee pain Current Visit: Yes Status: Acute Plan to address problem: Management by primary attending (6) Psychosis Current Visit: Yes Status: Acute Plan to address problem: Management per primary attending/psychiatrist Subjective Date of service: 11/19/18 Principal diagnosis: acute kidney injury Interval history: Patient seen lying in bed. Still with nonsensical speech. She is talking about "[facility], [facility]. [facility]" etc. Objective - Exam Narrative Exam: Middle-aged morbidly obese, comfortably lying in bed in no acute distress HEENT: NCAT, pink oral mucous membrane Neck: Supple, no venous distention CVS: S1S2 RRR with no murmur, rub or gallop Chest: Clear to auscultation Abdomen: Obese, soft, nontender, no organomegaly, bowel sounds are present Extremities: No edema Skin: Warm and dry, no rash Genitourinary deferred Neuro: Awake, alert no focal deficits - Vital Signs Vital signs: Vital Signs - 12hr 11/19/18 07:49 Temperature 98.4 F Pulse Rate 78 Respiratory 20 Rate Blood Pressure 141/78 [Left] O2 Sat by Pulse 100 Oximetry - Lab 11/15/18 11:53 11/19/18 10:04 Most recent lab results Calcium 9.1 mg/dL (8.4-10.2) 11/19/18 10:04 Phosphorus 2.80 mg/dL (2.5-4.5) 11/18/18 04:12 Magnesium 1.90 mg/dL (1.7-2.3) 11/16/18 21:07 Urine Creatinine 446.7 mg/dL (0.1-20.0) H 11/15/18 15:14 Urine Sodium 37 mmol/L 11/15/18 15:14 Medications & Allergies - Medications Allergies/Adverse Reactions: Allergies No Known Allergies Allergy (Verified 06/21/18 19:40) Home Medications: Home Medications Medication Instructions Recorded Confirmed Last Taken Type Atenolol [Tenormin] 25 mg PO DAILY 06/21/18 06/21/18 Unknown History Nitroglycerin [Nitrostat] 0.4 mg SL Q5M 06/21/18 06/21/18 Unknown History NIFEdipine [Adalat cc] 90 mg PO DAILY 06/26/18 06/26/18 Unknown History OLANZapine [Zyprexa] 5 mg PO QHS 06/26/18 06/26/18 Unknown History buPROPion [Wellbutrin] 100 mg PO QAM 06/26/18 06/26/18 Unknown History traZODone [Desyrel] 100 mg PO QHS 06/26/18 06/26/18 Unknown History Active Medications: Generic Name Dose Route Start Last Admin Trade Name Freq PRN Reason Stop Dose Admin Acetaminophen 650 mg 11/16/18 04:30 Tylenol PO Q4H PRN Pain MILD(1-3)/Fever >100.5/MARIE Atenolol 25 mg 11/15/18 13:00 11/19/18 11:12 Tenormin PO 25 mg DAILY [facility] Administration Bupropion HCl 100 mg 11/16/18 10:00 11/19/18 11:13 Wellbutrin PO Not Given QAM [facility] Enoxaparin Sodium 30 mg 11/16/18 22:00 11/18/18 21:10 Lovenox SUB-Q 30 mg DAILY@2200 [facility] Administration Famotidine 10 mg 11/16/18 10:00 11/19/18 11:12 Pepcid PO 10 mg BID [facility] Administration Haloperidol 0.5 mg 11/17/18 22:00 11/19/18 11:13 Haldol PO Not Given BID [facility] Haloperidol Lactate 5 mg 11/17/18 13:29 Haldol IM Q6H PRN Agitation Hydromorphone HCl 0.25 mg 11/16/18 04:30 Dilaudid IV Q3H PRN Pain, Moderate (4-6) Dextrose 1,000 mls @ 125 mls/hr 11/18/18 13:00 11/19/18 14:14 D5w IV 125 mls/hr DIRECT [facility] Administration Insulin Human Lispro 0 unit 11/16/18 07:30 11/19/18 12:40 Humalog SUB-Q Not Given ACHS [facility] Protocol Nifedipine 90 mg 11/15/18 13:00 11/19/18 11:12 Procardia Xl PO 90 mg QDAY [facility] Administration Olanzapine 5 mg 11/16/18 22:00 11/18/18 22:12 Zyprexa PO Not Given QHS [facility] Oxycodone/Acetaminophen 1 tab 11/16/18 04:30 Percocet 5/325 PO Q6H PRN Pain, Moderate (4-6) Sodium Chloride 10 ml 11/16/18 10:00 11/19/18 11:14 Sodium Chloride Flush Syringe 10 Ml IV 10 ml BID [facility] Administration Sodium Chloride 10 ml 11/16/18 04:30 Sodium Chloride Flush Syringe 10 Ml IV PRN PRN LINE FLUSH Trazodone HCl 100 mg 11/16/18 22:00 11/18/18 22:12 Desyrel PO Not Given QHS [facility]
[2018-11-19] MEDS: LOVENOX SUB-Q SCH (21:58)
[2018-11-19] MEDS: DESYREL PO SCH (22:33)
[2018-11-20 04:05] LABS: Calcium 8.8 mg/dL (8.4-10.2)
[2018-11-20] MEDS: HumaLOG SUB-Q SCH ×3 (08:09→16:21)
[2018-11-20] MEDS: HALDOL PO SCH ×2 (10:10→22:50)
[2018-11-20] MEDS: PEPCID PO SCH (10:10)
[2018-11-20] MEDS: PROCARDIA XL PO SCH (10:10)
[2018-11-20] MEDS: TENORMIN PO SCH (10:10)
[2018-11-20] MEDS: WELLBUTRIN PO SCH (10:10)
[2018-11-20] MEDS: SODIUM CHLORIDE FLUSH SYRINGE 10 ML IV SCH (10:11)
--- NOTE | 2018-11-20 10:28 | Discharge Summary ---
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 Notified:: awaiting call back 11/15/18 12:53 Consult to Physician [CONS] Urgent Comment: Consulting Provider: VANI CASH Physician Instructions: Reason For Exam: adelaida 11/16/18 Consult to Case Management [CONS] Routine Services Needed at Discharge: Field Associate Notified:: JOSEPH 11/16/18 04:44 Consult to Mental Health [CONS] Routine Reason For Exam: SChizophrenia Place consult to:: y Notified:: SHELTON Consult to Physician [CONS] Routine Comment: Consulting Provider: ALBERT CRUZ Physician Instructions: Reason For Exam: Disorganized behavior Hospitalization Condition: Fair Hospital course: 68F w pmh of schizophrenia, dm, ckd who presents with acute psychosis Her serum potassium was found to be low and it was repleted , she was treated with hypotonic fluid for hypernatremia and free water deficits. -Her kidney function improved with IV fluids, diabetes was ruled out as the A1c was 5. She was clinically optimized and then discharged to a psych unit for treatment of her acute psychosis Diagnosis Acute psychosis Schizophrenia adelaida on ckd- vasomotor nephropathy Hypoglycemia Hypokalemia hypernatremia Disposition: DC/TX-65 PSY HOSP/PSY UNIT Time spent for discharge: 33 min Core Measure Documentation - Palliative Care Palliative Care/ Comfort Measures: Not Applicable - Core Measures Any of the following diagnoses?: none Exam - Physical Exam Narrative exam: General.: Appears well, no distress, nontoxic HEENT: Moist mucous membranes, extraocular muscles intact, no lymphadenopathy Neck: supple Cardiac: S1-S2 heard Lungs: clear to auscultation bilaterally Abdomen: soft , nontender, nondistended, bowel sounds positive Extremities: no edema clubbing or cyanosis Skin: no rash or lesions Neurologic: no gross focal deficits Psych: Disorganized, flights of fancy, delusions of grandeur - Constitutional Vitals: Temp Pulse Resp BP Pulse Ox 98.1 F 88 18 148/89 97 11/20/18 07:33 11/20/18 10:10 11/20/18 08:41 11/20/18 10:10 11/20/18 08:41 Plan Follow up with: [facility] [Other] - 3-5 Days
--- NOTE | 2018-11-20 13:52 | Progress Note ---
Assessment and Plan - Patient Problems (1) Acute on chronic renal insufficiency Current Visit: Yes Status: Acute Plan to address problem: Overall renal function is stable and has improved since her admission. From a renal standpoint patient is stable for DC to psych unit. (2) Hypertensive chronic kidney disease with stage 1 through stage 4 chronic kidney disease, or unspecified chronic kidney disease Current Visit: Yes Status: Acute Plan to address problem: Continue to monitor on her current regimen. (3) Type 2 diabetes mellitus with diabetic nephropathy Current Visit: Yes Status: Chronic Plan to address problem: DM management per primary team/attending. (4) Hypokalemia Current Visit: Yes Status: Acute Plan to address problem: Repleted per protocol. levels are acceptable at this time. Continue to monitor. (5) Psychosis Current Visit: Yes Status: Acute Plan to address problem: Further management per psychiatry. Subjective Date of service: 11/20/18 Principal diagnosis: acute kidney injury Interval history: No acute issues overnight. Overall renal function has improved significantly since admission with appropriate IVF hydration. Objective - Vital Signs Vital signs: Vital Signs - 12hr 11/20/18 11/20/18 11/20/18 07:33 07:35 10:00 Temperature 98.1 F Pulse Rate 83 88 Respiratory 18 18 18 Rate Blood Pressure 148/89 O2 Sat by Pulse 99 97 97 Oximetry 11/20/18 11/20/18 10:10 13:24 Temperature 98.4 F Pulse Rate 88 81 Respiratory 18 Rate Blood Pressure 148/89 97/76 O2 Sat by Pulse 97 Oximetry - General Appearance General appearance: well-nourished, appears stated age EENT: ATNC, PERRL Neck: no JVD, no thyromegaly Respiratory: Present: Clear to Ascultation Cardiology: regular, S1S2 Gastrointestinal: normal, normoactive bowel sounds Integumentary: no rash, warm and dry Musculoskeletal: other (-edema ) Psychiatric: cooperative - Lab 11/15/18 11:53 11/20/18 03:22 Most recent lab results Calcium 8.8 mg/dL (8.4-10.2) 11/20/18 03:22 Phosphorus 2.80 mg/dL (2.5-4.5) 11/18/18 04:12 Magnesium 1.90 mg/dL (1.7-2.3) 11/16/18 21:07 Urine Creatinine 446.7 mg/dL (0.1-20.0) H 11/15/18 15:14 Urine Sodium 37 mmol/L 11/15/18 15:14 - Allied health notes Allied health notes reviewed: nursing Medications & Allergies - Medications Allergies/Adverse Reactions: Allergies No Known Allergies Allergy (Verified 06/21/18 19:40) Home Medications: Home Medications Medication Instructions Recorded Confirmed Last Taken Type Atenolol [Tenormin] 25 mg PO DAILY 06/21/18 06/21/18 Unknown History Nitroglycerin [Nitrostat] 0.4 mg SL Q5M 06/21/18 06/21/18 Unknown History NIFEdipine [Adalat cc] 90 mg PO DAILY 06/26/18 06/26/18 Unknown History OLANZapine [Zyprexa] 5 mg PO QHS 06/26/18 06/26/18 Unknown History buPROPion [Wellbutrin] 100 mg PO QAM 06/26/18 06/26/18 Unknown History traZODone [Desyrel] 100 mg PO QHS 06/26/18 06/26/18 Unknown History Active Medications: Generic Name Dose Route Start Last Admin Trade Name Freq PRN Reason Stop Dose Admin Acetaminophen 650 mg 11/16/18 04:30 Tylenol PO Q4H PRN Pain MILD(1-3)/Fever >100.5/MARIE Atenolol 25 mg 11/15/18 13:00 11/20/18 10:10 Tenormin PO 25 mg DAILY [facility] Administration Bupropion HCl 100 mg 11/16/18 10:00 11/20/18 10:10 Wellbutrin PO 100 mg QAM [facility] Administration Enoxaparin Sodium 40 mg 11/20/18 22:00 Lovenox SUB-Q QDAY@2200 [facility] Famotidine 10 mg 11/16/18 10:00 11/20/18 10:10 Pepcid PO 10 mg BID [facility] Administration Haloperidol 0.5 mg 11/17/18 22:00 11/20/18 10:10 Haldol PO 0.5 mg BID [facility] Administration Haloperidol Lactate 5 mg 11/17/18 13:29 Haldol IM Q6H PRN Agitation Hydromorphone HCl 0.25 mg 11/16/18 04:30 Dilaudid IV Q3H PRN Pain, Moderate (4-6) Dextrose 1,000 mls @ 125 mls/hr 11/18/18 13:00 11/19/18 14:14 D5w IV 125 mls/hr DIRECT [facility] Administration Insulin Human Lispro 0 unit 11/16/18 07:30 11/20/18 11:14 Humalog SUB-Q Not Given ACHS [facility] Protocol Nifedipine 90 mg 11/15/18 13:00 11/20/18 10:10 Procardia Xl PO 90 mg QDAY [facility] Administration Olanzapine 5 mg 11/16/18 22:00 11/19/18 22:33 Zyprexa PO Not Given QHS [facility] Oxycodone/Acetaminophen 1 tab 11/16/18 04:30 Percocet 5/325 PO Q6H PRN Pain, Moderate (4-6) Sodium Chloride 10 ml 11/16/18 10:00 11/20/18 10:11 Sodium Chloride Flush Syringe 10 Ml IV 10 ml BID [facility] Administration Sodium Chloride 10 ml 11/16/18 04:30 Sodium Chloride Flush Syringe 10 Ml IV PRN PRN LINE FLUSH Trazodone HCl 100 mg 11/16/18 22:00 11/19/18 22:33 Desyrel PO Not Given QHS [facility]
--- NOTE | 2018-11-20 21:36 | Progress Note ---
Assessment and Plan Assessment and plan: 68F w pmh of schizophrenia, dm, ckd who presents with acute psychosis Diagnosis Acute psychosis Schizophrenia adelaida on ckd- vasomotor nephropathy Hypoglycemia Hypokalemia hypernatremia Plan Potassium repleted hypotonic IVF, nephrology consult appreciated, renal function improved DM ruled out, A1c is 5 DVT ppx with lovenox she is medically optimized for discharge to psych unit awaiting psych bed History Interval history: Patient remains disorganized Review of systems Constitutional: No fevers, no malaise, no joint pains CVS: No chest pain, no orthopnea, no dyspnea on exertion, no pedal edema GI: No abdominal pain, no diarrhea, no vomiting, no constipation Respiratory: No shortness of breath, no wheezing, no coughing Hospitalist Physical - Physical exam Narrative exam: General.: Appears well, no distress, nontoxic HEENT: Moist mucous membranes, extraocular muscles intact, no lymphadenopathy Neck: supple Cardiac: S1-S2 heard Lungs: clear to auscultation bilaterally Abdomen: soft , nontender, nondistended, bowel sounds positive Extremities: no edema clubbing or cyanosis Skin: no rash or lesions Neurologic: no gross focal deficits Psych: Disorganized, flights of fancy, delusions of grandeur - Constitutional Vitals: Temp Pulse Resp BP Pulse Ox 98.5 F 80 20 136/76 98 11/20/18 20:57 11/20/18 20:57 11/20/18 20:57 11/20/18 20:57 11/20/18 20:57 General appearance: Present: no acute distress Results - Labs CBC & Chem 7: 11/15/18 11:53 11/20/18 03:22 Labs: Laboratory Last Values WBC 9.0 K/mm3 (4.5-11.0) 11/15/18 11:53 RBC 3.40 M/mm3 (3.65-5.03) L 11/15/18 11:53 Hgb 11.2 gm/dl (10.1-14.3) 11/15/18 11:53 Hct 32.8 % (30.3-42.9) 11/15/18 11:53 MCV 97 fl (79-97) 11/15/18 11:53 MCH 33 pg (28-32) H 11/15/18 11:53 MCHC 34 % (30-34) 11/15/18 11:53 RDW 15.9 % (13.2-15.2) H 11/15/18 11:53 Plt Count 152 K/mm3 (140-440) 11/15/18 11:53 Sodium 141 mmol/L (137-145) 11/20/18 03:22 Potassium 4.0 mmol/L (3.6-5.0) 11/20/18 03:22 Chloride 105.7 mmol/L (98-107) 11/20/18 03:22 Carbon Dioxide 27 mmol/L (22-30) 11/20/18 03:22 Anion Gap 12 mmol/L 11/20/18 03:22 BUN 14 mg/dL (7-17) 11/20/18 03:22 Creatinine 1.4 mg/dL (0.7-1.2) H 11/20/18 03:22 Estimated GFR 45 ml/min 11/20/18 03:22 BUN/Creatinine Ratio 10 % 11/20/18 03:22 Glucose 102 mg/dL (65-100) H 11/20/18 03:22 POC Glucose 84 (70-105) 11/20/18 16:16 Hemoglobin A1c 5.0 % (4-6) 11/15/18 11:43 Calcium 8.8 mg/dL (8.4-10.2) 11/20/18 03:22 Phosphorus 2.80 mg/dL (2.5-4.5) 11/18/18 04:12 Magnesium 1.90 mg/dL (1.7-2.3) 11/16/18 21:07 Total Creatine Kinase 357 units/L (30-135) H 11/15/18 11:53 TSH 2.360 mlU/mL (0.270-4.200) 11/15/18 13:24 Urine Color Radha (Yellow) 11/15/18 15:14 Urine Turbidity Clear (Clear) 11/15/18 15:14 Urine pH 5.0 (5.0-7.0) 11/15/18 15:14 Ur Specific [place] 1.025 (1.003-1.030) 11/15/18 15:14 Urine Protein 30 mg/dl mg/dL (Negative) 11/15/18 15:14 Urine Glucose (UA) Neg mg/dL (Negative) 11/15/18 15:14 Urine Ketones Tr mg/dL (Negative) 11/15/18 15:14 Urine Blood Neg (Negative) 11/15/18 15:14 Urine Nitrite Neg (Negative) 11/15/18 15:14 Urine Bilirubin Sm (Negative) 11/15/18 15:14 Urine Ictotest Negative (Negative) 11/15/18 15:14 Urine Urobilinogen 2.0 mg/dL (<2.0) 11/15/18 15:14 Ur Leukocyte Esterase Neg (Negative) 11/15/18 15:14 Urine WBC (Auto) 2.0 /HPF (0.0-6.0) 11/15/18 15:14 Urine RBC (Auto) < 1.0 /HPF (0.0-6.0) 11/15/18 15:14 U Epithel Cells (Auto) < 1.0 /HPF (0-13.0) 11/15/18 15:14 Hyaline Casts 1 /LPF 11/15/18 15:14 Urine Mucus Few /HPF 11/15/18 15:14 Urine Yeast (Budding) Few /HPF 11/15/18 15:14 Urine Creatinine 446.7 mg/dL (0.1-20.0) H 11/15/18 15:14 Urine Sodium 37 mmol/L 11/15/18 15:14 Salicylates < 0.3 mg/dL (2.8-20.0) L 11/15/18 13:24 Urine Opiates Screen Presumptive negative 11/15/18 15:14 Urine Methadone Screen Presumptive negative 11/15/18 15:14 Acetaminophen < 5.0 ug/mL (10.0-30.0) L 11/15/18 11:53 Ur Barbiturates Screen Presumptive negative 11/15/18 15:14 Ur Phencyclidine Scrn Presumptive negative 11/15/18 15:14 Ur Amphetamines Screen Presumptive negative 11/15/18 15:14 U Benzodiazepines Scrn Presumptive negative 11/15/18 15:14 Urine Cocaine Screen Presumptive negative 11/15/18 15:14 U Marijuana (THC) Screen Presumptive negative 11/15/18 15:14 Drugs of Abuse Note Disclamer 11/15/18 15:14 Plasma/Serum Alcohol < 0.01 % (0-0.07) 11/15/18 13:24 Active Medications - Current Medications Current Medications: Generic Name Dose Route Start Last Admin Trade Name Freq PRN Reason Stop Dose Admin Acetaminophen 650 mg 11/16/18 04:30 Tylenol PO Q4H PRN Pain MILD(1-3)/Fever >100.5/MARIE Atenolol 25 mg 11/15/18 13:00 11/20/18 10:10 Tenormin PO 25 mg DAILY [facility] Administration Bupropion HCl 100 mg 11/16/18 10:00 11/20/18 10:10 Wellbutrin PO 100 mg QAM [facility] Administration Enoxaparin Sodium 40 mg 11/20/18 22:00 Lovenox SUB-Q QDAY@2200 [facility] Famotidine 10 mg 11/16/18 10:00 11/20/18 10:10 Pepcid PO 10 mg BID [facility] Administration Haloperidol 0.5 mg 11/17/18 22:00 11/20/18 10:10 Haldol PO 0.5 mg BID [facility] Administration Haloperidol Lactate 5 mg 11/17/18 13:29 Haldol IM Q6H PRN Agitation Hydromorphone HCl 0.25 mg 11/16/18 04:30 Dilaudid IV Q3H PRN Pain, Moderate (4-6) Dextrose 1,000 mls @ 125 mls/hr 11/18/18 13:00 11/19/18 14:14 D5w IV 125 mls/hr DIRECT [facility] Administration Insulin Human Lispro 0 unit 11/16/18 07:30 11/20/18 16:21 Humalog SUB-Q Not Given ACHS [facility] Protocol Nifedipine 90 mg 11/15/18 13:00 11/20/18 10:10 Procardia Xl PO 90 mg QDAY [facility] Administration Olanzapine 5 mg 11/16/18 22:00 11/19/18 22:33 Zyprexa PO Not Given QHS [facility] Oxycodone/Acetaminophen 1 tab 11/16/18 04:30 Percocet 5/325 PO Q6H PRN Pain, Moderate (4-6) Sodium Chloride 10 ml 11/16/18 10:00 11/20/18 10:11 Sodium Chloride Flush Syringe 10 Ml IV 10 ml BID [facility] Administration Sodium Chloride 10 ml 11/16/18 04:30 Sodium Chloride Flush Syringe 10 Ml IV PRN PRN LINE FLUSH Trazodone HCl 100 mg 11/16/18 22:00 11/19/18 22:33 Desyrel PO Not Given QHS [facility]
[2018-11-21] MEDS: LOVENOX SUB-Q SCH (00:07)
[2018-11-21] MEDS: PEPCID PO SCH ×2 (00:07→09:21)
[2018-11-21] MEDS: DESYREL PO SCH (00:08)
--- NOTE | 2018-11-21 08:47 | Progress Note ---
Assessment and Plan - Patient Problems (1) Acute on chronic renal insufficiency Current Visit: Yes Status: Acute Plan to address problem: Overall renal function is stable and has improved since her admission. From a renal standpoint patient is stable for DC to psych unit. (2) Hypertensive chronic kidney disease with stage 1 through stage 4 chronic kidney disease, or unspecified chronic kidney disease Current Visit: Yes Status: Acute Plan to address problem: Continue to monitor on her current regimen. (3) Type 2 diabetes mellitus with diabetic nephropathy Current Visit: Yes Status: Chronic Plan to address problem: DM management per primary team/attending. (4) Hypokalemia Current Visit: Yes Status: Acute Plan to address problem: Repleted per protocol. levels are acceptable at this time. Continue to monitor. (5) Psychosis Current Visit: Yes Status: Acute Plan to address problem: Further management per psychiatry. Subjective Date of service: 11/21/18 Principal diagnosis: acute kidney injury Interval history: No acute changes. Labs noted and renal function is stable. Pending transfer to psych inpatient. Objective - Vital Signs Vital signs: Vital Signs - 12hr 11/20/18 11/21/18 20:57 07:41 Temperature 98.5 F 98.6 F Pulse Rate 80 75 Respiratory 20 18 Rate Blood Pressure 136/76 135/78 O2 Sat by Pulse 98 99 Oximetry - General Appearance General appearance: appears stated age EENT: ATNC, PERRL Neck: no JVD Respiratory: Present: Clear to Ascultation Cardiology: regular, S1S2 Gastrointestinal: normal Integumentary: warm and dry Neurologic: no focal deficit Musculoskeletal: other (-edema ) Psychiatric: cooperative - Lab 11/15/18 11:53 11/20/18 03:22 Most recent lab results Calcium 8.8 mg/dL (8.4-10.2) 11/20/18 03:22 Phosphorus 2.80 mg/dL (2.5-4.5) 11/18/18 04:12 Magnesium 1.90 mg/dL (1.7-2.3) 11/16/18 21:07 Urine Creatinine 446.7 mg/dL (0.1-20.0) H 11/15/18 15:14 Urine Sodium 37 mmol/L 11/15/18 15:14 - Allied health notes Allied health notes reviewed: nursing Medications & Allergies - Medications Allergies/Adverse Reactions: Allergies No Known Allergies Allergy (Verified 06/21/18 19:40) Home Medications: Home Medications Medication Instructions Recorded Confirmed Last Taken Type Atenolol [Tenormin] 25 mg PO DAILY 06/21/18 11/20/18 Unknown History Nitroglycerin [Nitrostat] 0.4 mg SL Q5M 06/21/18 11/20/18 Unknown History NIFEdipine [Adalat cc] 90 mg PO DAILY 06/26/18 11/20/18 Unknown History OLANZapine [Zyprexa] 5 mg PO QHS 06/26/18 11/20/18 Unknown History buPROPion [Wellbutrin] 100 mg PO QAM 06/26/18 11/20/18 Unknown History traZODone [Desyrel] 100 mg PO QHS 06/26/18 11/20/18 Unknown History Active Medications: Generic Name Dose Route Start Last Admin Trade Name Freq PRN Reason Stop Dose Admin Acetaminophen 650 mg 11/16/18 04:30 Tylenol PO Q4H PRN Pain MILD(1-3)/Fever >100.5/MARIE Atenolol 25 mg 11/15/18 13:00 11/20/18 10:10 Tenormin PO 25 mg DAILY [facility] Administration Bupropion HCl 100 mg 11/16/18 10:00 11/20/18 10:10 Wellbutrin PO 100 mg QAM [facility] Administration Enoxaparin Sodium 40 mg 11/20/18 22:00 11/21/18 00:07 Lovenox SUB-Q 40 mg QDAY@2200 [facility] Administration Famotidine 10 mg 11/16/18 10:00 11/21/18 00:07 Pepcid PO 10 mg BID [facility] Administration Haloperidol 0.5 mg 11/17/18 22:00 11/20/18 22:50 Haldol PO 0.5 mg BID [facility] Administration Haloperidol Lactate 5 mg 11/17/18 13:29 Haldol IM Q6H PRN Agitation Hydromorphone HCl 0.25 mg 11/16/18 04:30 Dilaudid IV Q3H PRN Pain, Moderate (4-6) Dextrose 1,000 mls @ 125 mls/hr 11/18/18 13:00 11/19/18 14:14 D5w IV 125 mls/hr DIRECT [facility] Administration Insulin Human Lispro 0 unit 11/16/18 07:30 11/20/18 16:21 Humalog SUB-Q Not Given ACHS [facility] Protocol Nifedipine 90 mg 11/15/18 13:00 11/20/18 10:10 Procardia Xl PO 90 mg QDAY [facility] Administration Olanzapine 5 mg 11/16/18 22:00 11/21/18 00:08 Zyprexa PO 5 mg QHS [facility] Administration Oxycodone/Acetaminophen 1 tab 11/16/18 04:30 Percocet 5/325 PO Q6H PRN Pain, Moderate (4-6) Sodium Chloride 10 ml 11/16/18 10:00 11/20/18 10:11 Sodium Chloride Flush Syringe 10 Ml IV 10 ml BID [facility] Administration Sodium Chloride 10 ml 11/16/18 04:30 Sodium Chloride Flush Syringe 10 Ml IV PRN PRN LINE FLUSH Trazodone HCl 100 mg 11/16/18 22:00 11/21/18 00:08 Desyrel PO 100 mg QHS [facility] Administration
--- NOTE | 2018-11-21 09:05 | Progress Note ---
Assessment and Plan Assessment and plan: 68F w pmh of schizophrenia, dm, ckd who presents with acute psychosis Diagnosis Acute psychosis Schizophrenia adelaida on ckd- vasomotor nephropathy Hypoglycemia Hypokalemia hypernatremia Plan Potassium repleted hypotonic IVF, nephrology consult appreciated, renal function improved DM ruled out, A1c is 5 DVT ppx with lovenox she is medically optimized for discharge to psych unit awaiting psych bed History Interval history: Patient remains disorganized Review of systems Constitutional: No fevers, no malaise, no joint pains CVS: No chest pain, no orthopnea, no dyspnea on exertion, no pedal edema GI: No abdominal pain, no diarrhea, no vomiting, no constipation Respiratory: No shortness of breath, no wheezing, no coughing Hospitalist Physical - Physical exam Narrative exam: General.: Appears well, no distress, nontoxic HEENT: Moist mucous membranes, extraocular muscles intact, no lymphadenopathy Neck: supple Cardiac: S1-S2 heard Lungs: clear to auscultation bilaterally Abdomen: soft , nontender, nondistended, bowel sounds positive Extremities: no edema clubbing or cyanosis Skin: no rash or lesions Neurologic: no gross focal deficits Psych: Disorganized, flights of fancy, delusions of grandeur - Constitutional Vitals: Temp Pulse Resp BP Pulse Ox 98.6 F 75 18 135/78 99 11/21/18 07:41 11/21/18 07:41 11/21/18 07:41 11/21/18 07:41 11/21/18 07:41 General appearance: Present: no acute distress Results - Labs CBC & Chem 7: 11/15/18 11:53 11/20/18 03:22 Labs: Laboratory Last Values WBC 9.0 K/mm3 (4.5-11.0) 11/15/18 11:53 RBC 3.40 M/mm3 (3.65-5.03) L 11/15/18 11:53 Hgb 11.2 gm/dl (10.1-14.3) 11/15/18 11:53 Hct 32.8 % (30.3-42.9) 11/15/18 11:53 MCV 97 fl (79-97) 11/15/18 11:53 MCH 33 pg (28-32) H 11/15/18 11:53 MCHC 34 % (30-34) 11/15/18 11:53 RDW 15.9 % (13.2-15.2) H 11/15/18 11:53 Plt Count 152 K/mm3 (140-440) 11/15/18 11:53 Sodium 141 mmol/L (137-145) 11/20/18 03:22 Potassium 4.0 mmol/L (3.6-5.0) 11/20/18 03:22 Chloride 105.7 mmol/L (98-107) 11/20/18 03:22 Carbon Dioxide 27 mmol/L (22-30) 11/20/18 03:22 Anion Gap 12 mmol/L 11/20/18 03:22 BUN 14 mg/dL (7-17) 11/20/18 03:22 Creatinine 1.4 mg/dL (0.7-1.2) H 11/20/18 03:22 Estimated GFR 45 ml/min 11/20/18 03:22 BUN/Creatinine Ratio 10 % 11/20/18 03:22 Glucose 102 mg/dL (65-100) H 11/20/18 03:22 POC Glucose 85 (70-105) 11/21/18 07:29 Hemoglobin A1c 5.0 % (4-6) 11/15/18 11:43 Calcium 8.8 mg/dL (8.4-10.2) 11/20/18 03:22 Phosphorus 2.80 mg/dL (2.5-4.5) 11/18/18 04:12 Magnesium 1.90 mg/dL (1.7-2.3) 11/16/18 21:07 Total Creatine Kinase 357 units/L (30-135) H 11/15/18 11:53 TSH 2.360 mlU/mL (0.270-4.200) 11/15/18 13:24 Urine Color Radha (Yellow) 11/15/18 15:14 Urine Turbidity Clear (Clear) 11/15/18 15:14 Urine pH 5.0 (5.0-7.0) 11/15/18 15:14 Ur Specific [place] 1.025 (1.003-1.030) 11/15/18 15:14 Urine Protein 30 mg/dl mg/dL (Negative) 11/15/18 15:14 Urine Glucose (UA) Neg mg/dL (Negative) 11/15/18 15:14 Urine Ketones Tr mg/dL (Negative) 11/15/18 15:14 Urine Blood Neg (Negative) 11/15/18 15:14 Urine Nitrite Neg (Negative) 11/15/18 15:14 Urine Bilirubin Sm (Negative) 11/15/18 15:14 Urine Ictotest Negative (Negative) 11/15/18 15:14 Urine Urobilinogen 2.0 mg/dL (<2.0) 11/15/18 15:14 Ur Leukocyte Esterase Neg (Negative) 11/15/18 15:14 Urine WBC (Auto) 2.0 /HPF (0.0-6.0) 11/15/18 15:14 Urine RBC (Auto) < 1.0 /HPF (0.0-6.0) 11/15/18 15:14 U Epithel Cells (Auto) < 1.0 /HPF (0-13.0) 11/15/18 15:14 Hyaline Casts 1 /LPF 11/15/18 15:14 Urine Mucus Few /HPF 11/15/18 15:14 Urine Yeast (Budding) Few /HPF 11/15/18 15:14 Urine Creatinine 446.7 mg/dL (0.1-20.0) H 11/15/18 15:14 Urine Sodium 37 mmol/L 11/15/18 15:14 Salicylates < 0.3 mg/dL (2.8-20.0) L 11/15/18 13:24 Urine Opiates Screen Presumptive negative 11/15/18 15:14 Urine Methadone Screen Presumptive negative 11/15/18 15:14 Acetaminophen < 5.0 ug/mL (10.0-30.0) L 11/15/18 11:53 Ur Barbiturates Screen Presumptive negative 11/15/18 15:14 Ur Phencyclidine Scrn Presumptive negative 11/15/18 15:14 Ur Amphetamines Screen Presumptive negative 11/15/18 15:14 U Benzodiazepines Scrn Presumptive negative 11/15/18 15:14 Urine Cocaine Screen Presumptive negative 11/15/18 15:14 U Marijuana (THC) Screen Presumptive negative 11/15/18 15:14 Drugs of Abuse Note Disclamer 11/15/18 15:14 Plasma/Serum Alcohol < 0.01 % (0-0.07) 11/15/18 13:24 Active Medications - Current Medications Current Medications: Generic Name Dose Route Start Last Admin Trade Name Freq PRN Reason Stop Dose Admin Acetaminophen 650 mg 11/16/18 04:30 Tylenol PO Q4H PRN Pain MILD(1-3)/Fever >100.5/MARIE Atenolol 25 mg 11/15/18 13:00 11/20/18 10:10 Tenormin PO 25 mg DAILY CAROLE Administration Bupropion HCl 100 mg 11/16/18 10:00 11/20/18 10:10 Wellbutrin PO 100 mg QAM [facility] Administration Enoxaparin Sodium 40 mg 11/20/18 22:00 11/21/18 00:07 Lovenox SUB-Q 40 mg QDAY@2200 [facility] Administration Famotidine 10 mg 11/16/18 10:00 11/21/18 00:07 Pepcid PO 10 mg BID [facility] Administration Haloperidol 0.5 mg 11/17/18 22:00 11/20/18 22:50 Haldol PO 0.5 mg BID [facility] Administration Haloperidol Lactate 5 mg 11/17/18 13:29 Haldol IM Q6H PRN Agitation Hydromorphone HCl 0.25 mg 11/16/18 04:30 Dilaudid IV Q3H PRN Pain, Moderate (4-6) Dextrose 1,000 mls @ 125 mls/hr 11/18/18 13:00 11/19/18 14:14 D5w IV 125 mls/hr DIRECT [facility]LE Administration Insulin Human Lispro 0 unit 11/16/18 07:30 11/20/18 16:21 Humalog SUB-Q Not Given ACHS [facility] Protocol Nifedipine 90 mg 11/15/18 13:00 11/20/18 10:10 Procardia Xl PO 90 mg QDAY [facility] Administration Olanzapine 5 mg 11/16/18 22:00 11/21/18 00:08 Zyprexa PO 5 mg QHS [facility] Administration Oxycodone/Acetaminophen 1 tab 11/16/18 04:30 Percocet 5/325 PO Q6H PRN Pain, Moderate (4-6) Sodium Chloride 10 ml 11/16/18 10:00 11/20/18 10:11 Sodium Chloride Flush Syringe 10 Ml IV 10 ml BID [facility]OLE Administration Sodium Chloride 10 ml 11/16/18 04:30 Sodium Chloride Flush Syringe 10 Ml IV PRN PRN LINE FLUSH Trazodone HCl 100 mg 11/16/18 22:00 11/21/18 00:08 Desyrel PO 100 mg QHS [facility]OLE Administration
[2018-11-21] MEDS: HumaLOG SUB-Q SCH (09:21)
[2018-11-21] MEDS: TENORMIN PO SCH (09:22)
[2018-11-21] MEDS: PROCARDIA XL PO SCH (09:22)
[2018-11-21] MEDS: SODIUM CHLORIDE FLUSH SYRINGE 10 ML IV SCH (09:23)
[2018-11-21] MEDS: HALDOL PO SCH (09:23)
[2018-11-21] MEDS: WELLBUTRIN PO SCH (09:24)
--- NOTE | 2018-11-21 12:25 | Consultation ---
History of Present Illness - Reason for Consult Consult date: 11/21/18 Reason for consult: Mental health Evaluation Requesting physician: FLOR HUERTAS - Chief Complaint Chief complaint: "The FBI is after me" - History of Present Psychiatric Illness 68 y.o. AA female who presented to the ER for bizarre behavior. Today the patient is disorganized and tangent during the assessment. She rambles about several irrelevant topics during the interview. She is adamant that the FBI is after her. She was asked to elaborate more about the FBI, she refused. Also, she stated that she share the same doctor as "Flor Marino." The patient had to be redirected several times to keep her on topic. At this time, the patient isn't a good historian. Medications and Allergies Allergies Allergy/AdvReac Type Severity Reaction Status Date / Time No Known Allergies Allergy Verified 06/21/18 19:40 Home Medications Medication Instructions Recorded Confirmed Last Taken Type Atenolol [Tenormin] 25 mg PO DAILY 06/21/18 11/20/18 Unknown History Nitroglycerin [Nitrostat] 0.4 mg SL Q5M 06/21/18 11/20/18 Unknown History NIFEdipine [Adalat cc] 90 mg PO DAILY 06/26/18 11/20/18 Unknown History OLANZapine [Zyprexa] 5 mg PO QHS 06/26/18 11/20/18 Unknown History buPROPion [Wellbutrin] 100 mg PO QAM 06/26/18 11/20/18 Unknown History traZODone [Desyrel] 100 mg PO QHS 06/26/18 11/20/18 Unknown History Active Meds: Active Medications Acetaminophen (Tylenol) 650 mg PO Q4H PRN PRN Reason: Pain MILD(1-3)/Fever >100.5/MARIE Atenolol (Tenormin) 25 mg PO DAILY [facility] Last Admin: 11/21/18 09:22 Dose: 25 mg Documented by: Bupropion HCl (Wellbutrin) 100 mg PO QAM [facility] Last Admin: 11/21/18 09:24 Dose: 100 mg Documented by: Enoxaparin Sodium (Lovenox) 40 mg SUB-Q QDAY@2200 [facility] Last Admin: 11/21/18 00:07 Dose: 40 mg Documented by: Famotidine (Pepcid) 10 mg PO BID [facility] Last Admin: 11/21/18 09:21 Dose: 10 mg Documented by: Haloperidol (Haldol) 0.5 mg PO BID [facility] Last Admin: 11/21/18 09:23 Dose: 0.5 mg Documented by: Haloperidol Lactate (Haldol) 5 mg IM Q6H PRN PRN Reason: Agitation Hydromorphone HCl (Dilaudid) 0.25 mg IV Q3H PRN PRN Reason: Pain, Moderate (4-6) Dextrose (D5w) 1,000 mls @ 125 mls/hr IV DIRECT [facility] Last Admin: 11/19/18 14:14 Dose: 125 mls/hr Documented by: Insulin Human Lispro (Humalog) 0 unit SUB-Q ACHS [facility]; Protocol Last Admin: 11/21/18 09:21 Dose: Not Given Documented by: Nifedipine (Procardia Xl) 90 mg PO QDAY [facility] Last Admin: 11/21/18 09:22 Dose: 90 mg Documented by: Olanzapine (Zyprexa) 5 mg PO QHS [facility] Last Admin: 11/21/18 00:08 Dose: 5 mg Documented by: Oxycodone/Acetaminophen (Percocet 5/325) 1 tab PO Q6H PRN PRN Reason: Pain, Moderate (4-6) Sodium Chloride (Sodium Chloride Flush Syringe 10 Ml) 10 ml IV BID [facility] Last Admin: 11/21/18 09:23 Dose: 10 ml Documented by: Sodium Chloride (Sodium Chloride Flush Syringe 10 Ml) 10 ml IV PRN PRN PRN Reason: LINE FLUSH Trazodone HCl (Desyrel) 100 mg PO QHS [facility] Last Admin: 11/21/18 00:08 Dose: 100 mg Documented by: Mental Status Exam - Vital signs Last Vital Signs Temp 98.6 F 11/21/18 07:41 Pulse 75 11/21/18 07:41 Resp 18 11/21/18 07:41 BP 135/78 11/21/18 09:22 Pulse Ox 99 11/21/18 07:41 - Exam Narrative exam: MSE: Appearance: calm Behavior: regular eye contact Speech: pressured Mood: "okay" Affect: congruent to mood Thought Process: tangential, loose associations Thought Content: denies SI/HI's and AVH's, delusional Motor Activity: sitting up in the bed Cognition: A/O x3 Insight: poor Judgment: poor Results Result Diagrams: 11/15/18 11:53 11/21/18 18:02 All other labs normal. Assessment and Plan Assessment and plan: Impression: Unspecified Psychosis. Today the patient is disorganized and tangent during the assessment. DDx: Schizophrenia Recommendation/Plan: The patient's 1013 expires in 24 hours 11/22/2018. She will be assessed 11/23/2018 to determine if her 1013 need to be extended. Continue home medication home medications Zyprexa 5 mg PO HS for psychosis and Wellbutrin 100 mg PO daily for depression. Attempted to discuss possible metabolic side effects of Zyprexa with the patient. Also, attempted to discuss possible suicidality/medication induced marshall with the patient reference Wellbutrin. Dispo: The patient was referred to inpatient psy services. Staffed with Dr Agustina Oneal,
[2018-11-21 18:30] LABS: Calcium 8.7 mg/dL (8.4-10.2)
[2018-11-22] MEDS: SODIUM CHLORIDE FLUSH SYRINGE 10 ML IV SCH ×3 (00:37→22:11)
[2018-11-22] MEDS: DESYREL PO SCH ×2 (00:37→22:10)
[2018-11-22] MEDS: PEPCID PO SCH ×3 (00:37→22:09)
[2018-11-22] MEDS: LOVENOX SUB-Q SCH ×2 (00:38→22:10)
[2018-11-22] MEDS: HumaLOG SUB-Q SCH ×5 (00:38→22:12)
[2018-11-22] MEDS: TENORMIN PO SCH (09:47)
[2018-11-22] MEDS: PROCARDIA XL PO SCH (09:48)
[2018-11-22] MEDS: WELLBUTRIN PO SCH (09:48)
--- NOTE | 2018-11-22 10:24 | Progress Note ---
Assessment and Plan Assessment and plan: 68F w pmh of schizophrenia, dm, ckd who presents with acute psychosis Diagnosis Acute psychosis Schizophrenia adelaida on ckd- vasomotor nephropathy Hypoglycemia Hypokalemia hypernatremia Plan Potassium repleted hypotonic IVF, nephrology consult appreciated, renal function improved DM ruled out, A1c is 5 DVT ppx with lovenox she is medically optimized for discharge to psych unit awaiting psych bed History Interval history: Patient remains disorganized Review of systems Constitutional: No fevers, no malaise, no joint pains CVS: No chest pain, no orthopnea, no dyspnea on exertion, no pedal edema GI: No abdominal pain, no diarrhea, no vomiting, no constipation Respiratory: No shortness of breath, no wheezing, no coughing Hospitalist Physical - Physical exam Narrative exam: General.: Appears well, no distress, nontoxic HEENT: Moist mucous membranes, extraocular muscles intact, no lymphadenopathy Neck: supple Cardiac: S1-S2 heard Lungs: clear to auscultation bilaterally Abdomen: soft , nontender, nondistended, bowel sounds positive Extremities: no edema clubbing or cyanosis Skin: no rash or lesions Neurologic: no gross focal deficits Psych: Disorganized, flights of fancy, delusions of grandeur - Constitutional Vitals: Temp Pulse Resp BP Pulse Ox 98.5 F 84 16 139/71 98 11/22/18 05:35 11/22/18 10:00 11/22/18 10:00 11/22/18 09:47 11/22/18 10:00 General appearance: Present: no acute distress Results - Labs CBC & Chem 7: 11/15/18 11:53 11/21/18 18:02 Labs: Laboratory Last Values WBC 9.0 K/mm3 (4.5-11.0) 11/15/18 11:53 RBC 3.40 M/mm3 (3.65-5.03) L 11/15/18 11:53 Hgb 11.2 gm/dl (10.1-14.3) 11/15/18 11:53 Hct 32.8 % (30.3-42.9) 11/15/18 11:53 MCV 97 fl (79-97) 11/15/18 11:53 MCH 33 pg (28-32) H 11/15/18 11:53 MCHC 34 % (30-34) 11/15/18 11:53 RDW 15.9 % (13.2-15.2) H 11/15/18 11:53 Plt Count 152 K/mm3 (140-440) 11/15/18 11:53 Sodium 141 mmol/L (137-145) 11/21/18 18:02 Potassium 4.3 mmol/L (3.6-5.0) 11/21/18 18:02 Chloride 106.3 mmol/L (98-107) 11/21/18 18:02 Carbon Dioxide 27 mmol/L (22-30) 11/21/18 18:02 Anion Gap 12 mmol/L 11/21/18 18:02 BUN 15 mg/dL (7-17) 11/21/18 18:02 Creatinine 1.3 mg/dL (0.7-1.2) H 11/21/18 18:02 Estimated GFR 49 ml/min 11/21/18 18:02 BUN/Creatinine Ratio 12 % 11/21/18 18:02 Glucose 98 mg/dL (65-100) 11/21/18 18:02 POC Glucose 88 (70-105) 11/22/18 07:11 Hemoglobin A1c 5.0 % (4-6) 11/15/18 11:43 Calcium 8.7 mg/dL (8.4-10.2) 11/21/18 18:02 Phosphorus 2.80 mg/dL (2.5-4.5) 11/18/18 04:12 Magnesium 1.90 mg/dL (1.7-2.3) 11/16/18 21:07 Total Creatine Kinase 357 units/L (30-135) H 11/15/18 11:53 TSH 2.360 mlU/mL (0.270-4.200) 11/15/18 13:24 Urine Color Radha (Yellow) 11/15/18 15:14 Urine Turbidity Clear (Clear) 11/15/18 15:14 Urine pH 5.0 (5.0-7.0) 11/15/18 15:14 Ur Specific [place] 1.025 (1.003-1.030) 11/15/18 15:14 Urine Protein 30 mg/dl mg/dL (Negative) 11/15/18 15:14 Urine Glucose (UA) Neg mg/dL (Negative) 11/15/18 15:14 Urine Ketones Tr mg/dL (Negative) 11/15/18 15:14 Urine Blood Neg (Negative) 11/15/18 15:14 Urine Nitrite Neg (Negative) 11/15/18 15:14 Urine Bilirubin Sm (Negative) 11/15/18 15:14 Urine Ictotest Negative (Negative) 11/15/18 15:14 Urine Urobilinogen 2.0 mg/dL (<2.0) 11/15/18 15:14 Ur Leukocyte Esterase Neg (Negative) 11/15/18 15:14 Urine WBC (Auto) 2.0 /HPF (0.0-6.0) 11/15/18 15:14 Urine RBC (Auto) < 1.0 /HPF (0.0-6.0) 11/15/18 15:14 U Epithel Cells (Auto) < 1.0 /HPF (0-13.0) 11/15/18 15:14 Hyaline Casts 1 /LPF 11/15/18 15:14 Urine Mucus Few /HPF 11/15/18 15:14 Urine Yeast (Budding) Few /HPF 11/15/18 15:14 Urine Creatinine 446.7 mg/dL (0.1-20.0) H 11/15/18 15:14 Urine Sodium 37 mmol/L 11/15/18 15:14 Salicylates < 0.3 mg/dL (2.8-20.0) L 11/15/18 13:24 Urine Opiates Screen Presumptive negative 11/15/18 15:14 Urine Methadone Screen Presumptive negative 11/15/18 15:14 Acetaminophen < 5.0 ug/mL (10.0-30.0) L 11/15/18 11:53 Ur Barbiturates Screen Presumptive negative 11/15/18 15:14 Ur Phencyclidine Scrn Presumptive negative 11/15/18 15:14 Ur Amphetamines Screen Presumptive negative 11/15/18 15:14 U Benzodiazepines Scrn Presumptive negative 11/15/18 15:14 Urine Cocaine Screen Presumptive negative 11/15/18 15:14 U Marijuana (THC) Screen Presumptive negative 11/15/18 15:14 Drugs of Abuse Note Disclamer 11/15/18 15:14 Plasma/Serum Alcohol < 0.01 % (0-0.07) 11/15/18 13:24 Active Medications - Current Medications Current Medications: Generic Name Dose Route Start Last Admin Trade Name Freq PRN Reason Stop Dose Admin Acetaminophen 650 mg 11/16/18 04:30 Tylenol PO Q4H PRN Pain MILD(1-3)/Fever >100.5/MARIE Atenolol 25 mg 11/15/18 13:00 11/22/18 09:47 Tenormin PO 25 mg DAILY [facility] Administration Bupropion HCl 100 mg 11/16/18 10:00 11/22/18 09:48 Wellbutrin PO 100 mg QAM [facility] Administration Enoxaparin Sodium 40 mg 11/20/18 22:00 11/22/18 00:38 Lovenox SUB-Q 40 mg QDAY@2200 [facility] Administration Famotidine 10 mg 11/16/18 10:00 11/22/18 09:48 Pepcid PO 10 mg BID [facility] Administration Haloperidol Lactate 5 mg 11/17/18 13:29 Haldol IM Q6H PRN Agitation Hydromorphone HCl 0.25 mg 11/16/18 04:30 Dilaudid IV Q3H PRN Pain, Moderate (4-6) Dextrose 1,000 mls @ 125 mls/hr 11/18/18 13:00 11/19/18 14:14 D5w IV 125 mls/hr DIRECT [facility] Administration Insulin Human Lispro 0 unit 11/16/18 07:30 11/22/18 08:10 Humalog SUB-Q Not Given ACHS [facility] Protocol Nifedipine 90 mg 11/15/18 13:00 11/22/18 09:48 Procardia Xl PO 90 mg QDAY [facility] Administration Olanzapine 5 mg 11/16/18 22:00 11/22/18 00:45 Zyprexa PO Not Given QHS [facility] Oxycodone/Acetaminophen 1 tab 11/16/18 04:30 Percocet 5/325 PO Q6H PRN Pain, Moderate (4-6) Sodium Chloride 10 ml 11/16/18 10:00 11/22/18 09:49 Sodium Chloride Flush Syringe 10 Ml IV 10 ml BID [facility] Administration Sodium Chloride 10 ml 11/16/18 04:30 Sodium Chloride Flush Syringe 10 Ml IV PRN PRN LINE FLUSH Trazodone HCl 100 mg 11/16/18 22:00 11/22/18 00:37 Desyrel PO 100 mg QHS [facility] Administration
--- NOTE | 2018-11-22 12:44 | Progress Note ---
Subjective - Reason for Consult Consult date: 11/22/18 Reason for consult: Psychiatric Follow-up Evaluation - Chief Complaint Chief complaint: "I'm feeling fine." Patient is a 68 y.o. AA female who presented to the ER for bizarre behavior. Today the patient is irritable during the assessment. She presents with disorganized/ tangent thought process. She rambles about several irrelevant topics during the interview. For example, she states " I don't eat peasant food. the marshal intercepted me." She believes that others at the care home are stealing her clothes and that she is connected to mobster Shivam Muro and his son. She continues have paranoid delusions and auditory hallucinations. Per sitter patient can be heard/seen responding to internal stimuli. The patient had to be redirected several times to keep her on topic. She denies SI/HI's and VH's. Mental Status Exam - Vital signs Last Vital Signs Temp 98.5 F 11/22/18 05:35 Pulse 84 11/22/18 10:00 Resp 16 11/22/18 10:00 BP 139/71 11/22/18 09:47 Pulse Ox 98 11/22/18 10:00 - Exam Narrative exam: Mental Status Exam Appearance: calm Behavior: regular eye contact Speech: pressured Mood: "I'm fine" Affect: congruent to mood Thought Process: disorganized, tangential, loose associations Thought Content: denies SI/HI's ; + AH's and delusions Motor Activity: sitting up in the bed Cognition: A/O x 3 Insight: poor Judgment: poor Assessment and Plan Impression: Unspecified Psychosis. Today the patient is disorganized and tangent during the assessment. Psychosis is overt. She endorses paranoid delusions and auditory hallucinations. DDx: Schizophrenia Recommendation/Plan: 1. Will extend 1013. Patient meets criteria. 2. Increase Zyprexa 10 mg PO HS for psychosis. Attempted to discuss possible metabolic side effects of Zyprexa with the patient. 3. Continue Wellbutrin 100 mg PO daily for depression. Also, attempted to discuss possible suicidality/medication induced marshall with the patient reference Wellbutrin. Disposition: The patient was referred to inpatient psychiatric services. If stabilized, patient will return to care home. Staffed with Dr. Dolores Oneal.
[2018-11-23] MEDS: HumaLOG SUB-Q SCH ×2 (07:38→12:14)
--- NOTE | 2018-11-23 09:15 | Progress Note ---
Assessment and Plan Assessment and plan: 68F w pmh of schizophrenia, dm, ckd who presents with acute psychosis Diagnosis Acute psychosis Schizophrenia adelaida on ckd- vasomotor nephropathy Hypoglycemia Hypokalemia hypernatremia Plan Potassium repleted hypotonic IVF, nephrology consult appreciated, renal function improved DM ruled out, A1c is 5 DVT ppx with lovenox she is medically optimized for discharge to psych unit awaiting psych bed History Interval history: Patient remains disorganized Review of systems Constitutional: No fevers, no malaise, no joint pains CVS: No chest pain, no orthopnea, no dyspnea on exertion, no pedal edema GI: No abdominal pain, no diarrhea, no vomiting, no constipation Respiratory: No shortness of breath, no wheezing, no coughing Hospitalist Physical - Physical exam Narrative exam: General.: Appears well, no distress, nontoxic HEENT: Moist mucous membranes, extraocular muscles intact, no lymphadenopathy Neck: supple Cardiac: S1-S2 heard Lungs: clear to auscultation bilaterally Abdomen: soft , nontender, nondistended, bowel sounds positive Extremities: no edema clubbing or cyanosis Skin: no rash or lesions Neurologic: no gross focal deficits Psych: Disorganized, flights of fancy, delusions of grandeur - Constitutional Vitals: Temp Pulse Resp BP Pulse Ox 98.5 F 76 18 118/68 98 11/23/18 07:23 11/23/18 07:23 11/23/18 07:23 11/23/18 07:23 11/23/18 07:23 General appearance: Present: no acute distress Results - Labs CBC & Chem 7: 11/15/18 11:53 11/21/18 18:02 Labs: Laboratory Last Values WBC 9.0 K/mm3 (4.5-11.0) 11/15/18 11:53 RBC 3.40 M/mm3 (3.65-5.03) L 11/15/18 11:53 Hgb 11.2 gm/dl (10.1-14.3) 11/15/18 11:53 Hct 32.8 % (30.3-42.9) 11/15/18 11:53 MCV 97 fl (79-97) 11/15/18 11:53 MCH 33 pg (28-32) H 11/15/18 11:53 MCHC 34 % (30-34) 11/15/18 11:53 RDW 15.9 % (13.2-15.2) H 11/15/18 11:53 Plt Count 152 K/mm3 (140-440) 11/15/18 11:53 Sodium 141 mmol/L (137-145) 11/21/18 18:02 Potassium 4.3 mmol/L (3.6-5.0) 11/21/18 18:02 Chloride 106.3 mmol/L (98-107) 11/21/18 18:02 Carbon Dioxide 27 mmol/L (22-30) 11/21/18 18:02 Anion Gap 12 mmol/L 11/21/18 18:02 BUN 15 mg/dL (7-17) 11/21/18 18:02 Creatinine 1.3 mg/dL (0.7-1.2) H 11/21/18 18:02 Estimated GFR 49 ml/min 11/21/18 18:02 BUN/Creatinine Ratio 12 % 11/21/18 18:02 Glucose 98 mg/dL (65-100) 11/21/18 18:02 POC Glucose 97 (70-105) 11/23/18 07:31 Hemoglobin A1c 5.0 % (4-6) 11/15/18 11:43 Calcium 8.7 mg/dL (8.4-10.2) 11/21/18 18:02 Phosphorus 2.80 mg/dL (2.5-4.5) 11/18/18 04:12 Magnesium 1.90 mg/dL (1.7-2.3) 11/16/18 21:07 Total Creatine Kinase 357 units/L (30-135) H 11/15/18 11:53 TSH 2.360 mlU/mL (0.270-4.200) 11/15/18 13:24 Urine Color Radha (Yellow) 11/15/18 15:14 Urine Turbidity Clear (Clear) 11/15/18 15:14 Urine pH 5.0 (5.0-7.0) 11/15/18 15:14 Ur Specific [place] 1.025 (1.003-1.030) 11/15/18 15:14 Urine Protein 30 mg/dl mg/dL (Negative) 11/15/18 15:14 Urine Glucose (UA) Neg mg/dL (Negative) 11/15/18 15:14 Urine Ketones Tr mg/dL (Negative) 11/15/18 15:14 Urine Blood Neg (Negative) 11/15/18 15:14 Urine Nitrite Neg (Negative) 11/15/18 15:14 Urine Bilirubin Sm (Negative) 11/15/18 15:14 Urine Ictotest Negative (Negative) 11/15/18 15:14 Urine Urobilinogen 2.0 mg/dL (<2.0) 11/15/18 15:14 Ur Leukocyte Esterase Neg (Negative) 11/15/18 15:14 Urine WBC (Auto) 2.0 /HPF (0.0-6.0) 11/15/18 15:14 Urine RBC (Auto) < 1.0 /HPF (0.0-6.0) 11/15/18 15:14 U Epithel Cells (Auto) < 1.0 /HPF (0-13.0) 11/15/18 15:14 Hyaline Casts 1 /LPF 11/15/18 15:14 Urine Mucus Few /HPF 11/15/18 15:14 Urine Yeast (Budding) Few /HPF 11/15/18 15:14 Urine Creatinine 446.7 mg/dL (0.1-20.0) H 11/15/18 15:14 Urine Sodium 37 mmol/L 11/15/18 15:14 Salicylates < 0.3 mg/dL (2.8-20.0) L 11/15/18 13:24 Urine Opiates Screen Presumptive negative 11/15/18 15:14 Urine Methadone Screen Presumptive negative 11/15/18 15:14 Acetaminophen < 5.0 ug/mL (10.0-30.0) L 11/15/18 11:53 Ur Barbiturates Screen Presumptive negative 11/15/18 15:14 Ur Phencyclidine Scrn Presumptive negative 11/15/18 15:14 Ur Amphetamines Screen Presumptive negative 11/15/18 15:14 U Benzodiazepines Scrn Presumptive negative 11/15/18 15:14 Urine Cocaine Screen Presumptive negative 11/15/18 15:14 U Marijuana (THC) Screen Presumptive negative 11/15/18 15:14 Drugs of Abuse Note Disclamer 11/15/18 15:14 Plasma/Serum Alcohol < 0.01 % (0-0.07) 11/15/18 13:24 Active Medications - Current Medications Current Medications: Generic Name Dose Route Start Last Admin Trade Name Freq PRN Reason Stop Dose Admin Acetaminophen 650 mg 11/16/18 04:30 Tylenol PO Q4H PRN Pain MILD(1-3)/Fever >100.5/MARIE Atenolol 25 mg 11/15/18 13:00 11/22/18 09:47 Tenormin PO 25 mg DAILY CAROLE Administration Bupropion HCl 100 mg 11/16/18 10:00 11/22/18 09:48 Wellbutrin PO 100 mg QAM CAROLE Administration Enoxaparin Sodium 40 mg 11/20/18 22:00 11/22/18 22:10 Lovenox SUB-Q 40 mg QDAY@2200 [facility] Administration Famotidine 10 mg 11/16/18 10:00 11/22/18 22:09 Pepcid PO 10 mg BID [facility] Administration Haloperidol Lactate 5 mg 11/17/18 13:29 Haldol IM Q6H PRN Agitation Hydromorphone HCl 0.25 mg 11/16/18 04:30 Dilaudid IV Q3H PRN Pain, Moderate (4-6) Dextrose 1,000 mls @ 125 mls/hr 11/18/18 13:00 11/19/18 14:14 D5w IV 125 mls/hr DIRECT [facility] Administration Insulin Human Lispro 0 unit 11/16/18 07:30 11/23/18 07:38 Humalog SUB-Q Not Given ACHS [facility] Protocol Nifedipine 90 mg 11/15/18 13:00 11/22/18 09:48 Procardia Xl PO 90 mg QDAY [facility] Administration Olanzapine 10 mg 11/22/18 22:00 11/22/18 22:24 Zyprexa PO Not Given QHS [facility] Oxycodone/Acetaminophen 1 tab 11/16/18 04:30 Percocet 5/325 PO Q6H PRN Pain, Moderate (4-6) Sodium Chloride 10 ml 11/16/18 10:00 11/22/18 22:11 Sodium Chloride Flush Syringe 10 Ml IV 10 ml BID CAROLE Administration Sodium Chloride 10 ml 11/16/18 04:30 Sodium Chloride Flush Syringe 10 Ml IV PRN PRN LINE FLUSH Trazodone HCl 100 mg 11/16/18 22:00 11/22/18 22:10 Desyrel PO 100 mg QHS [facility] Administration Nutrition/Malnutrition Assess - Dietary Evaluation Nutrition/Malnutrition Findings: Nutrition Notes Start: 11/22/18 12:36 Freq: Status: Active Protocol: Document 11/22/18 12:36 RD (Rec: 11/22/18 13:03 RD [email or web address]) Co-Sign 11/22/18 12:36 LP Nutrition Notes Need for Assessment generated from: LOS Initial or Follow up Brief Note Current Diagnosis Diabetes,Hypertension Other Pertinent Diagnosis CVA, Depression, Schizophrenia Current Diet Cardiac [place] Body Weight (kg) 0 Subjective/Other Information Pt reports appetite is good and she is eating well. Reported intakes of 75% of meals eaten. Pt gave many food and food brand preferences during time of visit. Nutrition Intervention Revisit per MD consult or patient Sign Off request:
[2018-11-23] MEDS: PEPCID PO SCH (09:35)
[2018-11-23] MEDS: PROCARDIA XL PO SCH (09:35)
[2018-11-23] MEDS: TENORMIN PO SCH (09:38)
[2018-11-23] MEDS: WELLBUTRIN PO SCH (09:39)
[2018-11-23] MEDS: SODIUM CHLORIDE FLUSH SYRINGE 10 ML IV SCH (09:40)
--- NOTE | 2018-11-23 11:50 | Progress Note ---
Subjective - Reason for Consult Consult date: 11/23/18 Reason for consult: Psychiatry Follow-up - Chief Complaint Chief complaint: "The Feds are after me" 68 y.o. AA female who presented to the ER for bizarre behavior. Today the patient is still disorganized and tangent during the assessment. The patient's presentation have not changed, she is still psychotic. She denies SI/HI's and VH's. No indications of side effects of her medication. Mental Status Exam - Vital signs Last Vital Signs Temp 98.5 F 11/23/18 07:23 Pulse 81 11/23/18 10:00 Resp 18 11/23/18 10:00 BP 120/66 11/23/18 09:38 Pulse Ox 98 11/23/18 10:00 - Exam Narrative exam: MSE: Appearance: calm Behavior: regular eye contact Speech: pressured Mood: "okay" Affect: congruent to mood Thought Process: tangential, loose associations Thought Content: denies SI/HI's and AVH's, delusional, paranoia Motor Activity: sitting up in the bed Cognition: A/O x3 Insight: poor Judgment: poor Assessment and Plan Impression: Unspecified Psychosis. Today the patient is still disorganized and tangent during the assessment. DDx: Schizophrenia Recommendation/Plan: Continue 1013 and Zyprexa 10 mg PO HS for psychosis and Wellbutrin 100 mg PO daily for depression. Attempted to discuss possible metabolic side effects of Zyprexa with the patient. Also, attempted to discuss possible suicidality/medication induced marshall with the patient reference Wellbutrin. Dispo: The patient was accepted at [facility] pending transport time. [place] staff with [facility].
[2018-11-23 12:31] VITALS: BP 158/78
== END 2018-11-23 15:30 | DRG 682 ==
LOC: ED 09:08 → EEVIPCON 12:58 → 2B-ACE 12:58 → UNDODISIN 11-20 21:15
PROVIDERS: ADMIT Internal Medicine; ATTEND Internal Medicine
DX: N17.0 Acute kidney failure with tubular necrosis (principal); G93.41 Metabolic encephalopathy; F23 Brief psychotic disorder; E87.0 Hyperosmolality and hypernatremia; N18.3 Chronic kidney disease, stage 3 (moderate); E87.6 Hypokalemia; I12.9 Hypertensive chronic kidney disease with stage 1 through stage 4 chronic kidney disease, or unspecified chronic kidney disease; E11.649 Type 2 diabetes mellitus with hypoglycemia without coma; E11.22 Type 2 diabetes mellitus with diabetic chronic kidney disease; I25.10 Atherosclerotic heart disease of native coronary artery without angina pectoris; M25.561 Pain in right knee; F32.9 Major depressive disorder, single episode, unspecified; Z86.73 Personal history of transient ischemic attack (TIA), and cerebral infarction without residual deficits; Z79.899 Other long term (current) drug therapy; Z90.711 Acquired absence of uterus with remaining cervical stump; Z82.49 Family history of ischemic heart disease and other diseases of the circulatory system
CPT/HCPCS: 36415; 70450; 72170; 76770; 80048; 80307; 80320; 81001; 82550; 82570; 82962; 83036; 83735; 84100; 84300; 84443; 85027; 96360; G0378; G0480; J1630; J1650; J7030; J7042; J7070